=== PATIENT | female | born 1945 | race Caucasian/White ===

== ENCOUNTER 2018-09-05 15:00 | Inpatient (IN) ==
[2018-09-05] MEDS ORDERED: ASPIRIN CHEW 324 MG PO STA (15:21)
--- NOTE | 2018-09-05 15:59 | XRay Report ---
SINGLE VIEW CHEST CLINICAL HISTORY: Dyspnea. FINDINGS: An AP, portable, upright chest radiograph is compared to study dated 01/26/2016 and correlat ed with chest CT dated 08/27/2013. The examination is degraded by portable technique. A left subclavi an central venous infusion port is new from 2015. The patient is status post midline sternotomy and c ardiac valve surgery. The heart is enlarged. Mild pulmonary vascular congestion is noted. Chronic int erstitial thickening and mild nodularity is similar to previous. There are small pleural effusions wi th bibasilar consolidation. No pneumothorax is seen. The skeletal structures are osteopenic. The bony thorax is grossly intact. IMPRESSION: 1. Cardiomegaly with mild pulmonary vascular congestion. 2. There are small bilateral pleural effusions with bibasilar consolidation. This likely represents a telectasis. Clinical correlation will be required. Electronically signed by: Shaheed Toussaint M.D. 09/05/2018 3:58 PM
[2018-09-05 16:19] LABS: Hemoglobin 6.3 g/dL (12.0-16.0); INR 1.1 (0.9-1.1); Mean Corpuscular Hgb Conc 33.2 g/dL (32-36); Mean Corpuscular Volume 95.5 fL (80-100); Mean Platelet Volume 9.6 fL (7.4-10.4); Partial Thromboplastin Ratio 1.5; Platelet Count 184 K/uL (130-400); Prothrombin Time 10.8 Seconds (9.0-12.0); RDW Standard Deviation 51.4 fL (36.4-46.3); Red Blood Count 1.99 M/uL (4.2-5.4); White Blood Count 9.06 K/uL (4.8-10.8)
[2018-09-05 16:25] LABS: Oxygen Saturation VBG 65.9 %; pH VBG 7.49 (7.36-7.41)
[2018-09-05 16:28] LABS: Albumin Level 2.3 gm/dl (3.4-5.0); BUN Creatinine Ratio 29.8 (10-20); Calcium 6.9 mg/dl (8.5-10.1); Creatinine Clr Calc Pharmacy 68.9 ml/min; Est GFR (African American) 101.2; Est GFR (Non-African American) 87.3; Potassium 3.7 mmol/L (3.5-5.1)
[2018-09-05 16:33] LABS: Albumin Globulin Ratio 0.8 (0.9-2); Bilirubin,Total 0.3 mg/dl (0.2-1); Globulin 2.8 gm/dl (2.5-4.0); Total Protein 5.1 gm/dl (6.4-8.2); Troponin I 0.016 ng/ml (0-0.045)
[2018-09-05 16:35] LABS: iSTAT Hemoglobin 6.5 g/dl (12.0-16.0); iSTAT Ionized Calcium 1.09 mmol/l (1.12-1.32)
[2018-09-05 16:56] LABS: Basophils # (auto) 0.03 K/uL (0-0.2); Basophils % (auto) 0.3 %; Eosinophils # (auto) 0.01 K/uL (0-0.5); Eosinophils % (auto) 0.1 %; Immature Granulocytes # (auto) 0.03 K/uL (0.00-0.02); Immature Granulocytes % (auto) 0.3 %; Lymphocytes # (auto) 1.25 K/uL (1.2-3.4); Lymphocytes % (auto) 13.8 %; Monocytes # (auto) 1.44 K/uL (0.11-0.59); Monocytes % (auto) 15.9 %; Neutrophils % (auto) 69.6 %; RBC Morphology Unremarkable
[2018-09-05 17:22] LABS: Influenza A virus by PCR Neg for Influ A (Neg); Influenza B virus by PCR Neg for Influ B (Neg)
--- NOTE | 2018-09-05 18:34 | History & Physical Report ---
Date of Service September 05, 2018 Assessment & Plan (1) Symptomatic anemia: Pt reports has had dyspnea on exertion and orthopnea since starting chemo couple of months ago. Increased SOB past 4 days. Today lightheaded with walking. Denies syncope. In ER pt afebrile, P: 112, R: 35 down to 22, BP: 133/114 down to 123/62, 88% on RA up to 100% on 2L NC WBC: 9, H/H: 6.3/19, MCV: 95, MCH:31, MCHC: 33, Plt: 184 -Baseline Hgb: 12. Outpatient Hgb: 12.7 on 08/29/18 -Has been on lovenox outpatient for a-fib -pending iron studies, folate, B12, retic count -fecal occult stool -transfuse 2 units irradiated PRBC with lasix 40mg IV in between units -repeat H&H 4 hours after PRBC transfusion -hold aspirin, lovenox -GI consult appreciate recommendations (2) Ovarian cancer: Dx ovarian CA in 05/2018. Following with Dr Conroy at [facility] in [place]. Had chemo x 3, last was 07/27/18. Last Nuelasta 07/28/18. Scheduled for exploratory lap, PEREZ/SBO and debulking on 09/12/17 at [facility] with Dr Balderas. -continue tylenol, percocet prn pain (3) Acute respiratory failure: Pt reports has had dyspnea on exertion and orthopnea since starting chemo. Past 4 days with increased SOB. Denies cough/fever In ER pt afebrile, P: 112, R: 35 down to 22, BP: 133/114 down to 123/62, 88% on RA up to 100% on 2L NC CXR:Cardiomegaly with mild pulmonary vascular congestion. There are small bilateral pleural effusions with bibasilar consolidation. This likely represents atelectasis. -Doing well on 2L oxygen NC with sats 100% -Pt has been on lovenox 60mg BID for a-fib for one week, PE less likely -has current ascites, anemia -supplemental oxygen -monitor (4) Ascites: Hx ascites with ovarian CA. Last paracentesis 06/2018. Reports increased abdominal distension since last paracentesis which has significantly increased over the past few days. Chronic lower abdominal pain, but denies any increased abdominal pain. 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 Follows with Dr Cox for routine care Pt was seen with Dr Linda. See addendum History of Present Illness Chief Complaint: SOB, increased abdominal distension Primary Care Provider: Guillermo Cox MD Pt is 73 y/o F with PMH HTN, dyslipidemia, chronic LBBB, h/o endocarditis in 2003 with mitral valve repair with post op a-fib s/p ablation and post-op CVA, CAD s/p angioplasty RPDA and JOHNSON to LAD in 2015, ovarian CA diagnosed 05/2018, a -fib currently on lovenox presented to ER with c/o increased SOB and increased abdominal distension. Pt with hx abdominal pain and ascites, found to have ovarian/peritoneal CA in . Following with Dr Conroy at [facility] in [place]. Had Carbo AVC/Taxol 175 chemo x 3, last was 07/27/18. Last Nuelasta 07/28/18. Hx paracentesis, last one was in 06/2018 at [facility] Pt reports has had dyspnea on exertion and orthopnea since starting chemo. Past 4 days with increased SOB and today with SOB at rest. States this morning had left chest pain lasted a couple of seconds and resolved, occurred at rest. No further CP. Today felt lightheaded with walking. Denies syncope or falls. Pt states has had slow accumulation of abdominal distension since last paracentesis which has significantly increased over the past few days. Has had lower abdominal pain, but denies any increased abdominal pain. Had some nausea after taking tylenol on empty stomach this morning. Denies vomiting. Reports since chemo has had episodes of bright red blood noted on toilet paper with BMs that occurs a couple of times a week. States been happening daily over past 3 days. Reports BMs are soft. Denies diarrhea or constipation. Pt followed with Dr Balderas at [facility] and is scheduled for exploratory lap, PEREZ/SBO and debulking on 09/12/17 at [facility] On cardiology visit on 08/29/18 pt found to be in a-fib. Was started on lovenox secondary to upcoming surgical procedure. Pt reports has been taking 60mg Lovenox twice daily, denies missed doses. Denies fever/chills, diaphoresis, SINCLAIR, syncope, vision changes, neck pain, palpitations, cough, sore throat, choking, otalgia, rhinorrhea, paresthesias, extremity edema, rashes, urinary symptoms, hematuria, vaginal bleeding, epistaxis. Baseline Hgb: 12. Labs on 08/29/18 with Hgb: 12.7 05/19/18 EGD: esophagus unremarkable, minor inflammation of the antrum 05/19/18 Colonoscopy: direct visualization to approx 30 cm where there is marked angulation and evidence for diverticular disease. Scopes By Dr Chong - [facility] 09/01/[address] CHEST & CT ABD/PELVIS: 1. Moderate volume simple ascites with moderate simple pleural effusions. A few prominent central mesenteric lymph nodes are present. Diffusely heterogenouos and bulky uterus, which is concerning for neoplastic involvement. Interval decrease in burden of peritoneal disease compared to the study form 06/2018. No distinct peritoneal implant or evidence of liver scalloping. 2. Pulmonary nodules 3. Stable midbody pancreatic cystic lesion. 08/30/18 Echo: EF: 55-59%, s/p mitral valve repair. Moderate focal calcification of the anterior mitral valve leaflet. Mild mitral stenosis is present. Significant mitral regurgitation is absent. The left atrium is severely enlarged. Moderate tricuspid regurgitation is present. Allergies Allergy/AdvReac Type Severity Reaction Status Date / Time ELISE Inhibitors AdvReac Cough Unverified 09/05/18 17:11 Home Medications Home Medications Medication Instructions Recorded Confirmed Type acetaminophen [Tylenol] 325 mg PO Q6H PRN 09/05/18 09/05/18 History ascorbic acid (vitamin C) 1 g PO DAILY 09/05/18 09/05/18 History aspirin [Aspirin Low Dose] 81 mg PO DAILY 09/05/18 09/05/18 History carvedilol 6.25 mg PO BID 09/05/18 09/05/18 History dexamethasone 4 mg PO UD 09/05/18 09/05/18 History enoxaparin 60 mg SUBCUT UD 09/05/18 09/05/18 History isosorbide mononitrate 60 mg PO QAM 09/05/18 09/05/18 History losartan 25 mg PO DAILY 09/05/18 09/05/18 History melatonin 3 mg PO HS 09/05/18 09/05/18 History nitroglycerin 0.4 mg SUBLINGUAL UD PRN 09/05/18 09/05/18 History ondansetron HCl 8 mg PO UD PRN 09/05/18 09/05/18 History oxycodone-acetaminophen 1 tab PO Q4H PRN 09/05/18 09/05/18 History polyethylene glycol 3350 [Miralax] 17 g PO DAILY 09/05/18 09/05/18 History prochlorperazine maleate 10 mg PO Q6 PRN 09/05/18 09/05/18 History Past Med/Surg History Medical History LBBB (left bundle branch block) (Chronic) CAD (coronary artery disease) (Chronic) HTN (hypertension) (Chronic) HLD (hyperlipidemia) (Chronic) Ovarian cancer (Chronic) Atrial fibrillation (Chronic) Supraventricular tachycardia (Resolved) Endocarditis (Resolved) Stroke (Chronic) Rhabdomyolysis (Resolved) Pulmonary nodules (Chronic) "noted on CT chest 08/27/13" Pancreatic mass (Chronic) "noted on CT of chest 08/27/13" Surgical History History of cardiac cath (Resolved) 07/15/2016 - patent LAD stent, 40% mild LD distal to LAD stent, 30% mid RCA, distal RPDA patent History of appendectomy (Resolved) Status post exploratory laparotomy (Chronic) Status post mitral valve repair (Chronic) "Dr. Mcdaniel [facility] 2003" Status post ablation of accessory bypass tract (Chronic) "Dr. Worley [facility] 2004" Family History Other Breast cancer CAD (coronary artery disease) Lung cancer Social History Current Living Situation: Spouse Other Information That Helps Us Care for You: No Feels Safe at Home: Yes Smoking Status: Never smoker Second Hand Exposure: No Hx Alcohol Use: No Hx Substance Use: No Beliefs That Will Affect Care: None Preferred Language: Afghan Communication Ability: Effective Supervisor [employer] Required: No Review of Systems All systems reviewed & are unremarkable except as noted in HPI & below Physical Exam 2 Vital Signs (Past 24 Hours): Last Vital Signs Temp 36.6 C 09/05/18 15:14 Pulse 105 H 09/05/18 17:00 Resp 23 09/05/18 17:00 BP 136/71 09/05/18 17:00 Pulse Ox 100 09/05/18 17:00 Physical Exam: General: no acute distress, chronically ill appearing Head: normocephalic, atraumatic Eyes: PERRL, EOM's intact, conjunctiva non-injected, anicteric ENT: normal inspection external ears, nose, mucous membranes moist Neck: supple, trachea midline Lungs: R: 24, no accessory muscle use clear, 100% on 2L NC, diminished bases CV: irregularly irregular, no pretibial edema Abd: normal BS, soft, +distended, no tenderness to palpation, +ecchymosis to abdomen Ext: no cyanosis, no calf tenderness, no erythema Neuro: A&O x 3, no focal deficits noted, normal affect Skin: warm, dry Results & Data Laboratory Results Short CBC 09/05/18 09/05/18 Range/Units 15:59 18:12 WBC 9.06 (4.8-10.8) K/uL Hgb 6.3 L* 6.4 L* (12.0-16.0) g/dL Hct 19.0 L* 19.2 L* (37-47) % Plt Count 184 (130-400) K/uL BMP 09/05/18 15:59 Sodium 134 L Potassium 3.7 Chloride 106 Carbon Dioxide 22 BUN 19 H Creatinine 0.64 Glucose 97 Calcium 6.9 L Cardiac Enzymes 09/05/18 Range/Units 15:59 Troponin I 0.016 (0-0.045) ng/ml Liver Function 09/05/18 Range/Units 15:59 Total Bilirubin 0.3 (0.2-1) mg/dl AST 21 (15-37) U/L ALT 25 (12-78) U/L Alkaline Phosphatase 63 (45-117) U/L Albumin 2.3 L (3.4-5.0) gm/dl Diagnostic Findings CXR: IMPRESSION: 1. Cardiomegaly with mild pulmonary vascular congestion. 2. There are small bilateral pleural effusions with bibasilar consolidation. This likely represents atelectasis. Clinical correlation will be required. ECG Rate (beats per minute): 101 Rhythm: atrial fibrillation Findings: + LBBB Supervising Physician Co-Signing Physician Notes Attending addendum; The patient was seen and examined in emergency room Pt is 73 y/o F with PMH HTN, dyslipidemia, chronic LBBB, h/o endocarditis in 2004 with mitral valve repair with post op a-fib s/p ablation and post-op CVA, CAD s/p angioplasty RPDA and JOHNSON to LAD in 2015, ovarian CA diagnosed 05/2018, a -fib currently on lovenox presented to ER with c/o increased SOB and increased abdominal distension. She complains today of shortness of breath which is worse for the last few days Associated swelling of the abdomen She has been complaining of bright red blood per rectum which is intermittent Denies any chest pain, palpitation, nausea and/or vomiting but does have abdominal pain with distention On examination Looks pale Moderate shortness of breath at rest Vitals as noted Chest-clear to auscultate bilaterally. Heart-S1-S2 regular Abdomen-distended, soft, tender mostly upper quadrants, clinically moderate amount of ascitic fluid, bowel sounds present Extremities-no edema [employer]-alert, awake and oriented x3. No focal neuro deficit Admission labs and imaging studies reviewed Has a very low hemoglobin of 6.9 with bright red blood per rectum Has significant ascites may be contributing shortness of breath Ovarian cancer with ongoing chemotherapy. Has atrial fibrillation on Lovenox Acute with assessment and plan as outlined above by Victoria Linda
[2018-09-05 18:40] LABS: Hematocrit (blood only) 19.2 % (37-47); Hemoglobin 6.4 g/dL (12.0-16.0); Reticulocyte % 3.2 % (0.5-2.0); Reticulocytes # 0.06 10^6/uL (0.02-0.10)
[2018-09-05 18:54] LABS: Ferritin 314.3 ng/ml (8-388)
[2018-09-05 19:01] LABS: Vitamin B12 > 2000 pg/ml (211-911)
[2018-09-05 19:02] LABS: Folate (Folic Acid) 18.95 ng/ml (>5.38)
[2018-09-05] MEDS ORDERED: ACETAMINOPHEN 325 MG TAB PO PRN (19:15)
[2018-09-05] MEDS ORDERED: FUROSEMIDE 40 MG/4 ML VIAL IV ONE (19:15)
[2018-09-05] MEDS ORDERED: NITROGLYCERIN SL 0.4 MG/TAB TAB SL PRN (19:15)
[2018-09-05] MEDS: ONDANSETRON INJ 2 MG/ML 2 ML VIAL IV PRN (19:31)
[2018-09-05] MEDS ORDERED: METOPROLOL TARTRATE 1 MG/ML VIAL IV PRN (19:36)
[2018-09-05] MEDS: OXYCODONE/ACETAMINOPHEN 5mg/325mg TAB PO PRN (20:32)
[2018-09-05] MEDS: CARVEDILOL 6.25 MG TAB PO SCH (20:34)
--- NOTE | 2018-09-05 20:39 | Ultrasound Report ---
US abdomen limited HISTORY: 73 years-old Female ascites recurrent ascites with abdominal distention COMPARISON: None available TECHNIQUE: Multiple real-time sonographic images of the abdomen were obtained assessing grayscale colleen earance FINDINGS/IMPRESSION: Mild to moderate volume of ascites containing floating debris noted throughout all quadrants of the a bdomen. The above report was generated using voice recognition software. It may contain grammatical, syntax o r spelling errors. Electronically signed by: Eligio Raines M.D. 09/05/2018 8:38 PM
[2018-09-05] MEDS ORDERED: NON-FORMULARY MEDICATION (Melatonin [Melatonin] 3 MG) PO SCH (21:00)
[2018-09-05] MEDS ORDERED: FUROSEMIDE 40 MG in SYRINGE 0 ML IV SCH (21:00)
--- NOTE | 2018-09-05 21:27 | Emergency Department Note ---
Entered by Romy Ashley acting as a scribe for History of Present Illness General Chief complaint: Shortness of Breath/Dyspnea Stated complaint: SOB ,AB PAIN Source: patient Mode of arrival: EMS Limitations: no limitations History of Present Illness Provider complaint: shortness of breath Onset (ago): day(s) 4 Location: chest Pain Consistency: + other (worsening) Maximum Pain Intensity: 10 Current Pain Intensity: 4 Quality: + other (shortness of breath) Exacerbated By: + other (lying flat) The patient is a 73 year old female who presents to the Emergency Room with complaints of a worsening shortness of breath that began 4 days ago. The patient reports that she does experience chronic shortness of breath but it has been worse recently and when lying flat. She also states that she has chronic chest pain as well as abdominal pain that both come and go. She denies wearing nasal cannula oxygen at baseline. The patient notes that she has a history of ovarian cancer and her last chemotherapy session was the 28 of July. She reports that they have temporarily discontinued her sessions secondary to an upcoming surgery. Per EMS, the patient's O2 Sat was 88 en route. The patient denies a history of heart failure but notes that she does have a history of a- fib. She denies any sick contacts or history of blood clots, but states that she does currently take blood thinners. Home Medications Home Medications Medication Instructions Recorded Confirmed Type acetaminophen [Tylenol] 325 mg PO Q6H PRN 09/05/18 09/05/18 History ascorbic acid (vitamin C) 1 g PO DAILY 09/05/18 09/05/18 History aspirin [Aspirin Low Dose] 81 mg PO DAILY 09/05/18 09/05/18 History carvedilol 6.25 mg PO BID 09/05/18 09/05/18 History dexamethasone 4 mg PO UD 09/05/18 09/05/18 History enoxaparin 60 mg SUBCUT UD 09/05/18 09/05/18 History isosorbide mononitrate 60 mg PO QAM 09/05/18 09/05/18 History losartan 25 mg PO DAILY 09/05/18 09/05/18 History melatonin 3 mg PO HS 09/05/18 09/05/18 History nitroglycerin 0.4 mg SUBLINGUAL UD PRN 09/05/18 09/05/18 History ondansetron HCl 8 mg PO UD PRN 09/05/18 09/05/18 History oxycodone-acetaminophen 1 tab PO Q4H PRN 09/05/18 09/05/18 History polyethylene glycol 3350 [Miralax] 17 g PO DAILY 09/05/18 09/05/18 History prochlorperazine maleate 10 mg PO Q6 PRN 09/05/18 09/05/18 History Allergies Allergy/AdvReac Type Severity Reaction Status Date / Time ELISE Inhibitors AdvReac Cough Unverified 09/05/18 17:11 Past Med/Surg History Medical History LBBB (left bundle branch block) (Chronic) CAD (coronary artery disease) (Chronic) HTN (hypertension) (Chronic) HLD (hyperlipidemia) (Chronic) Ovarian cancer (Chronic) Atrial fibrillation (Chronic) Supraventricular tachycardia (Resolved) Endocarditis (Resolved) Stroke (Chronic) Rhabdomyolysis (Resolved) Pulmonary nodules (Chronic) "noted on CT chest 08/27/13" Pancreatic mass (Chronic) "noted on CT of chest 08/27/13" Surgical History History of cardiac cath (Resolved) 07/15/2016 - patent LAD stent, 40% mild LD distal to LAD stent, 30% mid RCA, distal RPDA patent History of appendectomy (Resolved) Status post exploratory laparotomy (Chronic) Status post mitral valve repair (Chronic) "[place]. Mcdan[place] [facility] [place] Status post ablation of accessory bypass tract (Chronic) "[place]. 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 and A total of 10 systems reviewed and were otherwise negative Physical Exam Vital Signs Vital Signs - 24 hr 09/05/18 15:07 09/05/18 15:14 09/05/18 15:20 Temperature 36.6 C Temperature Source Oral Sepsis Recent Fever Within 48 Hours No Sepsis New/Unexplained Change in Mental Status No Sepsis Action Taken by Nursing No Action Required Pulse Rate 112 H 99 H Pulse Rate [Right Finger] Pulse Rhythm Irregular Pulse Rhythm [Right Finger] Pulse Strength Normal Pulse Strength [Right Finger] Respiratory Rate 35 H 27 H Respiratory Effort / Characteristics Labored Respiratory Depth Normal Respiratory Pattern Regular Blood Pressure 133/114 H 133/114 H Blood Pressure [Right Arm] Blood Pressure Mean 120 120 Blood Pressure Mean [Right Arm] Blood Pressure Position Lying Blood Pressure Position [Right Arm] Pulse Oximetry 99 88 L 94 Oxygen Delivery Method Room Air Nasal Cannula Oxygen Flow Rate 4 Fraction of Inspired Oxygen 09/05/18 15:21 09/05/18 15:59 09/05/18 16:00 Temperature Temperature Source Sepsis Recent Fever Within 48 Hours Sepsis New/Unexplained Change in Mental Status Sepsis Action Taken by Nursing Pulse Rate 119 H 111 H 105 H Pulse Rate [Right Finger] Pulse Rhythm Regular Pulse Rhythm [Right Finger] Pulse Strength Pulse Strength [Right Finger] Respiratory Rate 28 H 24 16 Respiratory Effort / Characteristics Respiratory Depth Respiratory Pattern Blood Pressure 123/62 Blood Pressure [Right Arm] Blood Pressure Mean 82 Blood Pressure Mean [Right Arm] Blood Pressure Position Blood Pressure Position [Right Arm] Pulse Oximetry 100 100 Oxygen Delivery Method Nasal Cannula Oxygen Flow Rate 96 Fraction of Inspired Oxygen 09/05/18 16:08 09/05/18 17:00 09/05/18 17:31 Temperature Temperature Source Sepsis Recent Fever Within 48 Hours Sepsis New/Unexplained Change in Mental Status Sepsis Action Taken by Nursing Pulse Rate 105 H 106 H Pulse Rate [Right Finger] Pulse Rhythm Pulse Rhythm [Right Finger] Pulse Strength Pulse Strength [Right Finger] Respiratory Rate 23 21 Respiratory Effort / Characteristics Respiratory Depth Respiratory Pattern Blood Pressure 136/71 136/71 Blood Pressure [Right Arm] Blood Pressure Mean 92 92 Blood Pressure Mean [Right Arm] Blood Pressure Position Blood Pressure Position [Right Arm] Pulse Oximetry 100 99 Oxygen Delivery Method Nasal Cannula Nasal Cannula Oxygen Flow Rate 2 Fraction of Inspired Oxygen 2 09/05/18 18:00 09/05/18 19:05 Temperature 36.9 C Temperature Source Oral Sepsis Recent Fever Within 48 Hours Sepsis New/Unexplained Change in Mental Status Sepsis Action Taken by Nursing Pulse Rate 111 H Pulse Rate [Right Finger] 101 H Pulse Rhythm Pulse Rhythm [Right Finger] Irregular Pulse Strength Pulse Strength [Right Finger] Normal Respiratory Rate 26 H 22 Respiratory Effort / Characteristics Spontaneous SOB on Exertion Respiratory Depth Shallow Respiratory Pattern Tachypnea Blood Pressure 133/70 Blood Pressure [Right Arm] 101/68 Blood Pressure Mean 91 Blood Pressure Mean [Right Arm] 79 Blood Pressure Position Blood Pressure Position [Right Arm] Lying Pulse Oximetry 100 99 Oxygen Delivery Method Nasal Cannula Oxygen Flow Rate 2 Fraction of Inspired Oxygen GENERAL: Sitting up in bed, alert, chronically ill appearing, dyspneic with conversation, on nasal cannula oxygen. EYE EXAM: normal conjunctiva. OROPHARYNX: no exudate, no erythema, lips, buccal mucosa, and tongue normal and mucous membranes are moist NECK: supple, no nuchal rigidity, no adenopathy, non-tender LUNGS: Breath sounds diminished at bilateral bases. Normal chest wall mechanics HEART: no murmurs, S1 normal and S2 normal. Tachycardic and irregular. ABDOMEN: abdomen soft, non-tender, normo-active bowel, +fluid wave BACK: Back is symmetrical on inspection and there is no deformity, no midline tenderness, no CVA tenderness. RECTAL: negative heme, positive for external hemorrhage. SKIN: no rashes and no bruising UPPER EXTREMITIES: upper extremities are grossly normal. LOWER EXTREMITIES: Mild pitting edema. Calves are equal bilaterally. NEURO EXAM: Normal sensorium, cranial nerves II-XII grossly intact, normal speech, no gross weakness of arms, no gross weakness of legs. Course ED COURSE: Vital signs were reviewed and are within normal limits. The patients medical record was reviewed The above diagnostic studies were performed and reviewed. ED treatments and interventions as stated above. 1505: The patient was evaluated in room B12B. A complete history and physical examination was performed. 1640: Rectal exam performed. Patient consented for blood. 1646: Upon reevaluation, the patient appeared to have improvement of her symptoms. I discussed my findings with the patient and she understands and agrees with the treatment plan. Based on the patients age, coexisting illnesses, exam and lab findings the decision to treat as an inpatient was made. The patient remained stable while under my care. The patient will be evaluated for further management. Administered Medications Carvedilol (Coreg) 6.25 mg PO BID ZEFERINO Stop: 10/05/18 20:59 Last Admin: 09/05/18 20:34 Dose: 6.25 mg Furosemide 40 mg/ Syringe 4 mls @ 4 mls/min IV 2100 ZEFERINO Stop: 09/05/18 23:59 Last Admin: 09/05/18 20:34 Dose: 4 mls/min Ondansetron HCl (Zofran) 4 mg IV Q6H PRN PRN Reason: Nausea And Vomiting Stop: 10/05/18 19:14 Last Admin: 09/05/18 19:31 Dose: 4 mg Oxycodone/Acetaminophen (Percocet 5mg/325mg) 1 tab PO Q4H PRN PRN Reason: Pain Stop: 09/19/18 19:14 Last Admin: 09/05/18 20:32 Dose: 1 tab Discontinued Medications Aspirin (Aspirin) 324 mg PO NOW STA Stop: 09/05/18 15:22 Last Admin: 09/05/18 15:25 Dose: Not Given Medical Decision Making Differential Diagnosis Differential diagnoses includes but is not limited to pneumonia, bronchitis, COPD/Asthma exacerbation, pneumothorax, pulmonary embolism, congestive heart failure, acute coronary syndrome Medical Records Attestation: I reviewed the patient's medical records. Home Medications Current Medication List: was personally reviewed by me Laboratory Data Attestation: I reviewed the patient's lab results. Result diagrams: 09/05/18 18:12 09/05/18 15:59 Lab Results 09/05/18 09/05/18 09/05/18 Range/Units 15:59 15:59 15:59 WBC 9.06 (4.8-10.8) K/uL RBC 1.99 L (4.2-5.4) M/uL Hgb 6.3 L* (12.0-16.0) g/dL POC Hgb (12.0-16.0) g/dl Hct 19.0 L* (37-47) % POC Hct (37-47) % MCV 95.5 (80-100) fL MCH 31.7 (25-34) pg MCHC 33.2 (32-36) g/dL RDW Std Deviation 51.4 H (36.4-46.3) fL RDW Coeff of Gabriela 15.0 H (11.5-14.5) % Plt Count 184 (130-400) K/uL MPV 9.6 (7.4-10.4) fL Immature Gran % (Auto) 0.3 % Neut % (Auto) 69.6 % Lymph % (Auto) 13.8 % Forest % (Auto) 15.9 % Eos % (Auto) 0.1 % Baso % (Auto) 0.3 % Reticulocyte % (Auto) (0.5-2.0) % Immature Gran # (Auto) 0.03 H (0.00-0.02) K/uL Neut # (Auto) 6.30 (1.4-6.5) K/uL Lymph # (Auto) 1.25 (1.2-3.4) K/uL Forest # (Auto) 1.44 H (0.11-0.59) K/uL Eos # (Auto) 0.01 (0-0.5) K/uL Baso # (Auto) 0.03 (0-0.2) K/uL Reticulocyte # (0.02-0.10) 10^6/uL RBC Morphology Unremarkable PT 10.8 (9.0-12.0) Seconds INR 1.1 (0.9-1.1) APTT 40.0 H (21.0-31.0) Seconds PTT Ratio 1.5 VBG pH (7.36-7.41) VBG pCO2 (38-50) mmHg VBG pO2 mmHg VBG HCO3 mmol/L VBG O2 Saturation % VBG Base Excess mEq/L Barometric Pressure mm/Hg POC Sodium (135-144) mEq/L Sodium 134 L (136-145) mmol/L POC Potassium (3.3-5.0) mEq/L Potassium 3.7 (3.5-5.1) mmol/L POC Chloride (101-112) mEq/L Chloride 106 (98-107) mmol/L Carbon Dioxide 22 (21-32) mmol/L POC Total CO2 (24-31) mEq/l Anion Gap 6.0 (3-11) POC Anion Gap (16-25) mmol/L POC BUN (7-18) mg/dl BUN 19 H (7-18) mg/dl Creatinine 0.64 (0.6-1.2) mg/dl POC Creatinine (0.6-1.3) mg/dl Est Cr Clr Drug Dosing 68.9 ml/min Est GFR ( Amer) 101.2 Est GFR (Non-Af Amer) 87.3 BUN/Creatinine Ratio 29.8 H (10-20) Glucose 97 (70-99) mg/dl POC Glucose (other) (70-99) mg/dl Calcium 6.9 L (8.5-10.1) mg/dl POC Ioniz Calcium Amparo (1.12-1.32) mmol/l Iron (35-150) mcg/dl TIBC (250-450) mcg/dl Ferritin (8-388) ng/ml Total Bilirubin 0.3 (0.2-1) mg/dl AST 21 (15-37) U/L ALT 25 (12-78) U/L Alkaline Phosphatase 63 (45-117) U/L Troponin I 0.016 (0-0.045) ng/ml Total Protein 5.1 L (6.4-8.2) gm/dl Albumin 2.3 L (3.4-5.0) gm/dl Globulin 2.8 (2.5-4.0) gm/dl Albumin/Globulin Ratio 0.8 L (0.9-2) Lipase (73-393) U/L Vitamin B12 (211-911) pg/ml Folate (>5.38) ng/ml Influenza Type A (PCR) (Neg) Influenza Type B (PCR) (Neg) Blood Type Blood Type Recheck Antibody Screen Crossmatch 09/05/18 09/05/18 09/05/18 Range/Units 15:59 16:07 16:20 WBC (4.8-10.8) K/uL RBC (4.2-5.4) M/uL Hgb (12.0-16.0) g/dL POC Hgb 6.5 L* (12.0-16.0) g/dl Hct (37-47) % POC Hct 19 L* (37-47) % MCV (80-100) fL MCH (25-34) pg MCHC (32-36) g/dL RDW Std Deviation (36.4-46.3) fL RDW Coeff of Gabriela (11.5-14.5) % Plt Count (130-400) K/uL MPV (7.4-10.4) fL Immature Gran % (Auto) % Neut % (Auto) % Lymph % (Auto) % Forest % (Auto) % Eos % (Auto) % Baso % (Auto) % Reticulocyte % (Auto) (0.5-2.0) % Immature Gran # (Auto) (0.00-0.02) K/uL Neut # (Auto) (1.4-6.5) K/uL Lymph # (Auto) (1.2-3.4) K/uL Forest # (Auto) (0.11-0.59) K/uL Eos # (Auto) (0-0.5) K/uL Baso # (Auto) (0-0.2) K/uL Reticulocyte # (0.02-0.10) 10^6/uL RBC Morphology PT (9.0-12.0) Seconds INR (0.9-1.1) APTT (21.0-31.0) Seconds PTT Ratio VBG pH 7.49 H (7.36-7.41) VBG pCO2 27 L (38-50) mmHg VBG pO2 32 mmHg VBG HCO3 20 mmol/L VBG O2 Saturation 65.9 % VBG Base Excess -3.0 mEq/L Barometric Pressure 730.5 mm/Hg POC Sodium 131 L (135-144) mEq/L Sodium (136-145) mmol/L POC Potassium 4.2 (3.3-5.0) mEq/L Potassium (3.5-5.1) mmol/L POC Chloride 98 L (101-112) mEq/L Chloride (98-107) mmol/L Carbon Dioxide (21-32) mmol/L POC Total CO2 21 L (24-31) mEq/l Anion Gap (3-11) POC Anion Gap 18.0 (16-25) mmol/L POC BUN 19 H (7-18) mg/dl BUN (7-18) mg/dl Creatinine (0.6-1.2) mg/dl POC Creatinine 0.8 (0.6-1.3) mg/dl Est Cr Clr Drug Dosing ml/min Est GFR ( Amer) Est GFR (Non-Af Amer) BUN/Creatinine Ratio (10-20) Glucose (70-99) mg/dl POC Glucose (other) 109 H (70-99) mg/dl Calcium (8.5-10.1) mg/dl POC Ioniz Calcium Amparo 1.09 L (1.12-1.32) mmol/l Iron (35-150) mcg/dl TIBC (250-450) mcg/dl Ferritin (8-388) ng/ml Total Bilirubin (0.2-1) mg/dl AST (15-37) U/L ALT (12-78) U/L Alkaline Phosphatase (45-117) U/L Troponin I (0-0.045) ng/ml Total Protein (6.4-8.2) gm/dl Albumin (3.4-5.0) gm/dl Globulin (2.5-4.0) gm/dl Albumin/Globulin Ratio (0.9-2) Lipase (73-393) U/L Vitamin B12 (211-911) pg/ml Folate (>5.38) ng/ml Influenza Type A (PCR) Neg for Influ A (Neg) Influenza Type B (PCR) Neg for Influ B (Neg) Blood Type Blood Type Recheck Antibody Screen Crossmatch 09/05/18 09/05/18 09/05/18 Range/Units 16:52 18:12 18:12 WBC (4.8-10.8) K/uL RBC (4.2-5.4) M/uL Hgb 6.4 L* (12.0-16.0) g/dL POC Hgb (12.0-16.0) g/dl Hct 19.2 L* (37-47) % POC Hct (37-47) % MCV (80-100) fL MCH (25-34) pg MCHC (32-36) g/dL RDW Std Deviation (36.4-46.3) fL RDW Coeff of Gabriela (11.5-14.5) % Plt Count (130-400) K/uL MPV (7.4-10.4) fL Immature Gran % (Auto) % Neut % (Auto) % Lymph % (Auto) % Forest % (Auto) % Eos % (Auto) % Baso % (Auto) % Reticulocyte % (Auto) 3.2 H (0.5-2.0) % Immature Gran # (Auto) (0.00-0.02) K/uL Neut # (Auto) (1.4-6.5) K/uL Lymph # (Auto) (1.2-3.4) K/uL Forest # (Auto) (0.11-0.59) K/uL Eos # (Auto) (0-0.5) K/uL Baso # (Auto) (0-0.2) K/uL Reticulocyte # 0.06 (0.02-0.10) 10^6/uL RBC Morphology PT (9.0-12.0) Seconds INR (0.9-1.1) APTT (21.0-31.0) Seconds PTT Ratio VBG pH (7.36-7.41) VBG pCO2 (38-50) mmHg VBG pO2 mmHg VBG HCO3 mmol/L VBG O2 Saturation % VBG Base Excess mEq/L Barometric Pressure mm/Hg POC Sodium (135-144) mEq/L Sodium (136-145) mmol/L POC Potassium (3.3-5.0) mEq/L Potassium (3.5-5.1) mmol/L POC Chloride (101-112) mEq/L Chloride (98-107) mmol/L Carbon Dioxide (21-32) mmol/L POC Total CO2 (24-31) mEq/l Anion Gap (3-11) POC Anion Gap (16-25) mmol/L POC BUN (7-18) mg/dl BUN (7-18) mg/dl Creatinine (0.6-1.2) mg/dl POC Creatinine (0.6-1.3) mg/dl Est Cr Clr Drug Dosing ml/min Est GFR ( Amer) Est GFR (Non-Af Amer) BUN/Creatinine Ratio (10-20) Glucose (70-99) mg/dl POC Glucose (other) (70-99) mg/dl Calcium (8.5-10.1) mg/dl POC Ioniz Calcium Amparo (1.12-1.32) mmol/l Iron (35-150) mcg/dl TIBC (250-450) mcg/dl Ferritin (8-388) ng/ml Total Bilirubin (0.2-1) mg/dl AST (15-37) U/L ALT (12-78) U/L Alkaline Phosphatase (45-117) U/L Troponin I (0-0.045) ng/ml Total Protein (6.4-8.2) gm/dl Albumin (3.4-5.0) gm/dl Globulin (2.5-4.0) gm/dl Albumin/Globulin Ratio (0.9-2) Lipase (73-393) U/L Vitamin B12 (211-911) pg/ml Folate (>5.38) ng/ml Influenza Type A (PCR) (Neg) Influenza Type B (PCR) (Neg) Blood Type A Negative Blood Type Recheck A Negative Antibody Screen NEGATIVE Crossmatch See Detail 09/05/18 09/05/18 09/05/18 Range/Units 18:12 18:12 19:30 WBC (4.8-10.8) K/uL RBC (4.2-5.4) M/uL Hgb (12.0-16.0) g/dL POC Hgb (12.0-16.0) g/dl Hct (37-47) % POC Hct (37-47) % MCV (80-100) fL MCH (25-34) pg MCHC (32-36) g/dL RDW Std Deviation (36.4-46.3) fL RDW Coeff of Gabriela (11.5-14.5) % Plt Count (130-400) K/uL MPV (7.4-10.4) fL Immature Gran % (Auto) % Neut % (Auto) % Lymph % (Auto) % Forest % (Auto) % Eos % (Auto) % Baso % (Auto) % Reticulocyte % (Auto) (0.5-2.0) % Immature Gran # (Auto) (0.00-0.02) K/uL Neut # (Auto) (1.4-6.5) K/uL Lymph # (Auto) (1.2-3.4) K/uL Forest # (Auto) (0.11-0.59) K/uL Eos # (Auto) (0-0.5) K/uL Baso # (Auto) (0-0.2) K/uL Reticulocyte # (0.02-0.10) 10^6/uL RBC Morphology PT (9.0-12.0) Seconds INR (0.9-1.1) APTT (21.0-31.0) Seconds PTT Ratio VBG pH (7.36-7.41) VBG pCO2 (38-50) mmHg VBG pO2 mmHg VBG HCO3 mmol/L VBG O2 Saturation % VBG Base Excess mEq/L Barometric Pressure mm/Hg POC Sodium (135-144) mEq/L Sodium (136-145) mmol/L POC Potassium (3.3-5.0) mEq/L Potassium (3.5-5.1) mmol/L POC Chloride (101-112) mEq/L Chloride (98-107) mmol/L Carbon Dioxide (21-32) mmol/L POC Total CO2 (24-31) mEq/l Anion Gap (3-11) POC Anion Gap (16-25) mmol/L POC BUN (7-18) mg/dl BUN (7-18) mg/dl Creatinine (0.6-1.2) mg/dl POC Creatinine (0.6-1.3) mg/dl Est Cr Clr Drug Dosing ml/min Est GFR ( Amer) Est GFR (Non-Af Amer) BUN/Creatinine Ratio (10-20) Glucose (70-99) mg/dl POC Glucose (other) (70-99) mg/dl Calcium (8.5-10.1) mg/dl POC Ioniz Calcium Amparo (1.12-1.32) mmol/l Iron 10 L (35-150) mcg/dl TIBC 173 L (250-450) mcg/dl Ferritin 314.3 (8-388) ng/ml Total Bilirubin (0.2-1) mg/dl AST (15-37) U/L ALT (12-78) U/L Alkaline Phosphatase (45-117) U/L Troponin I (0-0.045) ng/ml Total Protein (6.4-8.2) gm/dl Albumin (3.4-5.0) gm/dl Globulin (2.5-4.0) gm/dl Albumin/Globulin Ratio (0.9-2) Lipase 69 L (73-393) U/L Vitamin B12 > 2000 H (211-911) pg/ml Folate 18.95 (>5.38) ng/ml Influenza Type A (PCR) (Neg) Influenza Type B (PCR) (Neg) Blood Type Blood Type Recheck Antibody Screen Crossmatch Imaging Data Radiologist's Impression: Radiology results as stated below per my review and the radiologist's interpretation: SINGLE VIEW CHEST CLINICAL HISTORY: Dyspnea. FINDINGS: An AP, portable, upright chest radiograph is compared to study dated and correlated with chest CT dated 08/27/2013. The examination is degraded by portable technique. A left subclavian central venous infusion port is new from 2016. The patient is status post midline sternotomy and cardiac valve surgery. The heart is enlarged. Mild pulmonary vascular congestion is noted. Chronic interstitial thickening and mild nodularity is similar to previous. There are small pleural effusions with bibasilar consolidation. No pneumothorax is seen. The skeletal structures are osteopenic. The bony thorax is grossly intact. IMPRESSION: 1. Cardiomegaly with mild pulmonary vascular congestion. 2. There are small bilateral pleural effusions with bibasilar consolidation. This likely represents atelectasis. Clinical correlation will be required. Electronically signed by: Shaheed Toussaint M.D. 09/05/2018 3:58 PM ECG Data Attestation: I personally reviewed and interpreted this ECG as follows: Indication: SOB/dyspnea Rate (beats per minute): 101 Rhythm: atrial fibrillation (with RVR) Findings: + ST depression (in lateral and high lateral) and + left axis deviation Comparison ECG Date: from (Jul-2016) Change: the following changes noted (a-fib new) Blood Pressure Blood Pressure Findings: Normal blood pressure Blood Pressure Disposition: did not require urgent referral MDM Narrative Patient is a 73-year-old female who presents the ER for weakness associated with shortness of breath. She found to be tachycardic and slightly hypoxic. She was placed on 3-4 L nasal cannula as pulse ox was 87-88 on room air. Labs were obtained and showed a anemia of 6.4 down from 14. Rectal was heme- negative. INR was unremarkable. VBG with a pH of 7.49. BMP with mild hyponatremia. BUN was slightly elevated. LFTs and troponin were normal. Lipase was normal. Influenza was negative. Patient was typed and crossmatched for 2 units. Patient was given 2 units PRBCs. Patient was updated bedside. She was discussed with the hospitalist and admitted for further workup. Of note she did admit to bright red blood per rectum off and on for several weeks. Impression & Plan Symptomatic anemia, Hypoxic Critical Care Time I have personally spent 35 minutes of critical care time in the direct management of this patient. This includes bedside care, interpretation of diagnostic studies and testing, discussion with consultants, patient, and family members, and other required patient management activities. These 35 minutes is in excess of all separately billable procedures. Critical Care Time: Yes Total Critical Care Time: 35 Discharge Plan Visit Data *Final* Discharge Date/Time: 09/05/18 19:01 Chief Complaint: Shortness of Breath/Dyspnea Stated Complaint: SOB ,AB PAIN ED Provider: Avery Chopra Discharge Problem: Symptomatic anemia, Hypoxic Patient Disposition: Admitted As Inpatient Discharge Instructions Interventions: ED Discharge Assessment Last Done: 09/05/18 19:01 The scribe's documentation has been prepared under my direction and personally reviewed by me in its entirety. I confirm that the note above accurately reflects all work, treatment, procedures, and medical decision making performed by me.
[2018-09-06] MEDS ORDERED: HEPARIN 100 UNIT/ML 5ML FLUSH FLUSH PRN (01:14)
[2018-09-06] MEDS: OXYCODONE/ACETAMINOPHEN 5mg/325mg TAB PO PRN ×2 (03:29→11:05)
[2018-09-06] MEDS: ONDANSETRON INJ 2 MG/ML 2 ML VIAL IV PRN (03:31)
[2018-09-06 04:31] LABS: BUN Creatinine Ratio 26.5 (10-20); Calcium 7.9 mg/dl (8.5-10.1); Creatinine Clr Calc Pharmacy 51.5 ml/min; Est GFR (African American) 77.7
[2018-09-06 04:32] LABS: Hematocrit (blood only) 25.9 % (37-47); Hemoglobin 8.7 g/dL (12.0-16.0); Mean Corpuscular Hgb Conc 33.6 g/dL (32-36); Mean Platelet Volume 9.9 fL (7.4-10.4); Platelet Count 179 K/uL (130-400); RDW Coefficient of Variation 19.6 % (11.5-14.5); RDW Standard Deviation 63.3 fL (36.4-46.3); Red Blood Count 2.91 M/uL (4.2-5.4); White Blood Count 8.93 K/uL (4.8-10.8)
[2018-09-06] MEDS: CARVEDILOL 6.25 MG TAB PO SCH (08:04)
[2018-09-06] MEDS ORDERED: ISOSORBIDE MONO EXTENDED REL 60 MG TABCR PO SCH (09:00)
[2018-09-06 09:36] LABS: Appearance Urine Clear (Clear); Bacteria Urine Automated Negative (Negative); Bilirubin Urine Negative (Negative); Color Urine Orange; Glucose Urine UA Negative (Negative); Ketones Urine Negative (Negative); Leukocyte Esterase Urine Negative (Negative); Nitrite Urine Negative (Negative); Protein Urine Trace (Negative); Specific Gravity Urine 1.021 (1.000-1.030); Urobilinogen Urine Negative (Negative); pH Urine 5.5 (4.5-7.5)
--- NOTE | 2018-09-06 09:45 | Gastrointestinal Consultation ---
Addendum entered and electronically signed by Yara Oscar 09/06/18 11: 24: Addendum (Blank) Addendum September 06, 2018 11:[address] Matthews regarding CT that was ordered - concerning for hemoperitoneum. Unfortunately I am unable to pull up imaging, report not finalized. Will review with radiology as well. GI recommend urgent transfer for IR services at a tertiary care center ([facility]) Original Note: Date of Consultation September 06, 2018 Assessment & Plan (1) Ovarian cancer: 73 year old female w/ peritoneal carcinomatosis, malignant ascites on chemotherapy to go for PEREZ/BSO next week in [place] admitted to [facility] for abd distention and SOB. HGB on arrival 6.3 w/o any s/s of GIB - re-accumulation of ascites, drop in HGB w/o evidence of GIB - CT imaging to rule out internal bleed - No indication for repeat EGD/Colon - If negative can arrange diagnostic/therapeutic paracentesis no more than 3- 4 L off - Cell count to rule out SBP - Monitor GI output - Trend H&H - Transfuse PRN - Given upcoming surgery in [place], low threshold for transfer - GI to sign off. Thank you for allowing us to participate in the care of this patient. Please call with any acute changes, questions or concerns. Please see addendum below with additional recommendation from my supervising physician. Present on Admission?: Yes Supervising Physician Co-Signing Physician Notes I saw and evaluated the patient. She presented with abdominal discomfort distention and a drop in her hemoglobin. CT reveals that she has new onset hemoperitoneum. Unfortunately this is not necessarily something that gastroenterology can evaluate fully. I would therefore suggest that she be referred to a tertiary center for evaluation as she will likely need interventional radiology support and perhaps a surgical support. Physical examination Pleasant appearing female in no obvious distress Mild abdominal tenderness noted on exam Impression: Patient with finding of hemoperitoneum on CT scan. This is perhaps likely related to her history of a malignancy. I would suggest surgical consultation or perhaps referral to a tertiary center for further recommendations and treatment plans. History of Present Illness Reason for Consultation: ascites, anemia Requesting Physician: Byron Attending Physician: Damien Matthews MD History of Present Illness 73 year old female with history of HTN, dyslipidemia, LBBB, endocarditis w/ mitral valve repair in 2004 complicated post operatively by afib and CVA, CAD s/ p JOHNSON to LAD in 2016 and recently diagnosed ovarian CA who presents to [facility] for evaluation of SOB. She notes in May, presented to OSH for abd pain, ascites. CT at that time w/ questionable pelvic mass and omental caking. Underwent EGD/Colon in 05/19 negative. 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 She has since established with w/ Amaliai w/ [facility]/ Onc in [place]. Is to have total hysterectomy and debulking next week in [place]. She presents to [facility] for progressively worsening abd distention and SOB. Notes over the past few weeks her stomach had become more distended, but this worsened over the past 72 hours. She explains abd fullness and pressure but denies any abd pain. Notes she is moving her bowels daily. Has brown stools. Denies any black/bloody stools. Will occasionally see some streaking of BRB on toilet tissue. Denies any of recent. Today, still SOB. No fever, chills, CP, SOB ABD US: Mild to moderate volume of ascites containing floating debris noted throughout all quadrants of the abdomen. Chest XR: Cardiomegaly with mild pulmonary vascular congestion. There are small bilateral pleural effusions with bibasilar consolidation. This likely represents atelectasis. Clinical correlation will be required. Paracentesis 05/25/18: Malignant High grade serous carcinoma. The cellblock preparation shows single and clusters of tumor cells forming occasional papillary structures. The tumor cells demostrate an increased nuclear/ cytoplasmic ratio, hyperchromatic nuclei, variable nuclear pleomorphism and prominent macronucleoli. The cytoplasm varies from eosinophilic to clear and some degree of necrosis is also present. Mitotic figures are seen.Special studies: Immunocytochemical assays were performed and the tumor cells are positive for ER, WT-1,p53, CK7, CK8/18, CA125, and CEA, and negative for mammaglobin, BREONNA-3, TTF-1, and CK20, supportingthe above diagnosis. The cellular proliferation index (MIB-1) is high (80%). Comment: Received and reviewed are 17 slides from [facility]. The patient�s clinical historyof pelvic mass and elevated levels of CA 125 are noted. This cellular specimen demonstrates numerousclusters of atypical cells with pleomorphic, hyperchromatic nuclei with prominent nucleoli. Overall, the tumorcytomorphology and immunophenotype are compatible with high grade serous carcinoma. � CT abd/pelvis 06/17/18: Performed in [facility] (formerly [facility]3] 05/12/18, increase in size of probable malignant ascitesProbably metastatic deposits along mesenteric surfaces are similar to the previous study (most prominently in the left upper quadrant). Newly developed bilateral pleural effusions. Possible developing hepatic cirrhosis.Redemonstration of calcified distal splenic artery aneurysm. � CT abd/pelvis 05/12/18: Heterogenous dense material is seen in the posterior pelvis, with suggestion of active contrast extravasation from the right gonadal vein. Additionally, low-density ascitic fluid is present, predominantly in the upper abdomen, possibly related to developing hepatic cirrhosis. Mild intrahepatic and extrahepatic biliary dilation without visible obstruction abnormality.Approximately 1 cm calcified distal splenic artery aneurysm, stable from 11/06/15 Allergies Allergy/AdvReac Type Severity Reaction Status Date / Time ELISE Inhibitors AdvReac Cough Unverified 09/05/18 17:11 Home Medications Home Medications Medication Instructions Recorded Confirmed Type carvedilol 6.25 mg PO BID 09/05/18 09/05/18 History Patient History Medical History LBBB (left bundle branch block) (Chronic) CAD (coronary artery disease) (Chronic) HTN (hypertension) (Chronic) HLD (hyperlipidemia) (Chronic) Ovarian cancer (Chronic) Atrial fibrillation (Chronic) Supraventricular tachycardia (Resolved) Endocarditis (Resolved) Stroke (Chronic) Rhabdomyolysis (Resolved) Pulmonary nodules (Chronic) "noted on CT chest 08/27/13" Pancreatic mass (Chronic) "noted on CT of chest 08/27/13" Surgical History History of cardiac cath (Resolved) 07/15/2016 - patent LAD stent, 40% mild LD distal to LAD stent, 30% mid RCA, distal RPDA patent History of appendectomy (Resolved) Status post exploratory laparotomy (Chronic) Status post mitral valve repair (Chronic) "Dr. Mcdaniel [place] 2003" Status post ablation of accessory bypass tract (Chronic) "Dr. Worley [place] 2004" Family History Other Breast cancer CAD (coronary artery disease) Lung cancer Social History Current Living Situation: Spouse Other Information That Helps Us Care for You: No Feels Safe at Home: Yes Smoking Status: Never smoker Second Hand Exposure: No Hx Alcohol Use: No Hx Substance Use: No Beliefs That Will Affect Care: None Preferred Language: Finnish Review of Systems Constitutional: + fatigue and + weakness; no fever and no chills Respiratory: + dyspnea; no cough, no hemoptysis, no snoring and no wheezing Cardiovascular: + dyspnea and + dyspnea on exertion; no chest pain, no chest pain at rest, no radiating jaw, neck or arm pain and no palpitations Gastrointestinal: + bloating; no abdominal pain, no belching, no early satiety, no heartburn, no nausea, no vomiting, no coffee ground emesis, no hematemesis, no pain with swallowing, no dysphagia, no cramping, no excessive flatulence, no change in bowel habits, no change in stools, no constipation, no diarrhea/loose stools, no fecal incontinence, no constant urge to pass stools, no blood in stools and no melena Physical Exam 2 Vital Signs (Past 24 Hours): Last Vital Signs Temp 36.9 C 09/06/18 07:48 Pulse 75 09/06/18 08:15 Resp 28 H 09/06/18 07:48 BP 105/51 L 09/06/18 07:48 Pulse Ox 100 09/06/18 07:48 Constitutional: + ill appearing, cooperative and comfortable; no acute distress Respiratory: normal respiratory effort, lungs clear to auscultation Cardiovascular: RRR, no murmur, no edema Gastrointestinal (Abdomen): Inspection/Auscultation: normal bowel sounds Percussion/Palpation: + ascites; no guarding and abdomen not rigid scattered echymosis on abd Skin: no rashes, warm and dry Results & Data Laboratory Results 09/06/18 09/06/18 09/06/18 Range/Units 08:55 03:57 03:57 WBC 8.93 (4.8-10.8) K/uL RBC 2.91 L (4.2-5.4) M/uL Hgb 8.7 L (12.0-16.0) g/dL POC Hgb (12.0-16.0) g/dl Hct 25.9 L (37-47) % POC Hct (37-47) % MCV 89.0 D (80-100) fL MCH 29.9 (25-34) pg MCHC 33.6 (32-36) g/dL RDW Std Deviation 63.3 H (36.4-46.3) fL RDW Coeff of Gabriela 19.6 H (11.5-14.5) % Plt Count 179 (130-400) K/uL MPV 9.9 (7.4-10.4) fL Immature Gran % (Auto) % Neut % (Auto) % Lymph % (Auto) % Garvin % (Auto) % Eos % (Auto) % Baso % (Auto) % Reticulocyte % (Auto) (0.5-2.0) % Immature Gran # (Auto) (0.00-0.02) K/uL Neut # (Auto) (1.4-6.5) K/uL Lymph # (Auto) (1.2-3.4) K/uL Garvin # (Auto) (0.11-0.59) K/uL Eos # (Auto) (0-0.5) K/uL Baso # (Auto) (0-0.2) K/uL Reticulocyte # (0.02-0.10) 10^6/uL RBC Morphology PT (9.0-12.0) Seconds INR (0.9-1.1) APTT (21.0-31.0) Seconds PTT Ratio VBG pH (7.36-7.41) VBG pCO2 (38-50) mmHg VBG pO2 mmHg VBG HCO3 mmol/L VBG O2 Saturation % VBG Base Excess mEq/L Barometric Pressure mm/Hg POC Sodium (135-144) mEq/L Sodium 133 L (136-145) mmol/L POC Potassium (3.3-5.0) mEq/L Potassium 4.0 (3.5-5.1) mmol/L POC Chloride (101-112) mEq/L Chloride 102 (98-107) mmol/L Carbon Dioxide 25 (21-32) mmol/L POC Total CO2 (24-31) mEq/l Anion Gap 6.0 (3-11) POC Anion Gap (16-25) mmol/L POC BUN (7-18) mg/dl BUN 23 H (7-18) mg/dl Creatinine 0.85 (0.6-1.2) mg/dl POC Creatinine (0.6-1.3) mg/dl Est Cr Clr Drug Dosing 51.5 ml/min Est GFR ( Amer) 77.7 Est GFR (Non-Af Amer) 67.0 BUN/Creatinine Ratio 26.5 H (10-20) Glucose 151 H (70-99) mg/dl POC Glucose (other) (70-99) mg/dl Calcium 7.9 L (8.5-10.1) mg/dl POC Ioniz Calcium Amparo (1.12-1.32) mmol/l Iron (35-150) mcg/dl TIBC (250-450) mcg/dl Ferritin (8-388) ng/ml Total Bilirubin (0.2-1) mg/dl AST (15-37) U/L ALT (12-78) U/L Alkaline Phosphatase (45-117) U/L Troponin I (0-0.045) ng/ml Total Protein (6.4-8.2) gm/dl Albumin (3.4-5.0) gm/dl Globulin (2.5-4.0) gm/dl Albumin/Globulin Ratio (0.9-2) Lipase (73-393) U/L Vitamin B12 (211-911) pg/ml Folate (>5.38) ng/ml Urine Color [place] Urine Appearance Clear (Clear) Urine pH 5.5 (4.5-7.5) Ur Specific [place] 1.021 (1.000-1.030) Urine Protein Trace H (Negative) Urine Glucose (UA) Negative (Negative) Urine Ketones Negative (Negative) Urine Blood Negative (Negative) Urine Nitrite Negative (Negative) Urine Bilirubin Negative (Negative) Urine Urobilinogen Negative (Negative) Ur Leukocyte Esterase Negative (Negative) Urine WBC (Auto) 1-5 (0-5) /hpf Urine RBC (Auto) 0-4 (0-4) /hpf U Hyaline Cast (Auto) 1-5 (0-5) /lpf U Epithel Cells (Auto) 5-10 H (0-5) /lpf Urine Bacteria (Auto) Negative (Negative) Influenza Type A (PCR) (Neg) Influenza Type B (PCR) (Neg) Blood Type Blood Type Recheck Antibody Screen Crossmatch 09/05/18 09/05/1819 Range/Units 19:30 18:12 18:12 WBC (4.8-10.8) K/uL RBC (4.2-5.4) M/uL Hgb (12.0-16.0) g/dL POC Hgb (12.0-16.0) g/dl Hct (37-47) % POC Hct (37-47) % MCV (80-100) fL MCH (25-34) pg MCHC (32-36) g/dL RDW Std Deviation (36.4-46.3) fL RDW Coeff of Gabriela (11.5-14.5) % Plt Count (130-400) K/uL MPV (7.4-10.4) fL Immature Gran % (Auto) % Neut % (Auto) % Lymph % (Auto) % Garvin % (Auto) % Eos % (Auto) % Baso % (Auto) % Reticulocyte % (Auto) (0.5-2.0) % Immature Gran # (Auto) (0.00-0.02) K/uL Neut # (Auto) (1.4-6.5) K/uL Lymph # (Auto) (1.2-3.4) K/uL Garvin # (Auto) (0.11-0.59) K/uL Eos # (Auto) (0-0.5) K/uL Baso # (Auto) (0-0.2) K/uL Reticulocyte # (0.02-0.10) 10^6/uL RBC Morphology PT (9.0-12.0) Seconds INR (0.9-1.1) APTT (21.0-31.0) Seconds PTT Ratio VBG pH (7.36-7.41) VBG pCO2 (38-50) mmHg VBG pO2 mmHg VBG HCO3 mmol/L VBG O2 Saturation % VBG Base Excess mEq/L Barometric Pressure mm/Hg POC Sodium (135-144) mEq/L Sodium (136-145) mmol/L POC Potassium (3.3-5.0) mEq/L Potassium (3.5-5.1) mmol/L POC Chloride (101-112) mEq/L Chloride (98-107) mmol/L Carbon Dioxide (21-32) mmol/L POC Total CO2 (24-31) mEq/l Anion Gap (3-11) POC Anion Gap (16-25) mmol/L POC BUN (7-18) mg/dl BUN (7-18) mg/dl Creatinine (0.6-1.2) mg/dl POC Creatinine (0.6-1.3) mg/dl Est Cr Clr Drug Dosing ml/min Est GFR ( Amer) Est GFR (Non-Af Amer) BUN/Creatinine Ratio (10-20) Glucose (70-99) mg/dl POC Glucose (other) (70-99) mg/dl Calcium (8.5-10.1) mg/dl POC Ioniz Calcium Amparo (1.12-1.32) mmol/l Iron 10 L (35-150) mcg/dl TIBC 173 L (250-450) mcg/dl Ferritin 314.3 (8-388) ng/ml Total Bilirubin (0.2-1) mg/dl AST (15-37) U/L ALT (12-78) U/L Alkaline Phosphatase (45-117) U/L Troponin I (0-0.045) ng/ml Total Protein (6.4-8.2) gm/dl Albumin (3.4-5.0) gm/dl Globulin (2.5-4.0) gm/dl Albumin/Globulin Ratio (0.9-2) Lipase 69 L (73-393) U/L Vitamin B12 > 2000 H (211-911) pg/ml Folate 18.95 (>5.38) ng/ml Urine Color Urine Appearance (Clear) Urine pH (4.5-7.5) Ur Specific [place] (1.000-1.030) Urine Protein (Negative) Urine Glucose (UA) (Negative) Urine Ketones (Negative) Urine Blood (Negative) Urine Nitrite (Negative) Urine Bilirubin (Negative) Urine Urobilinogen (Negative) Ur Leukocyte Esterase (Negative) Urine WBC (Auto) (0-5) /hpf Urine RBC (Auto) (0-4) /hpf U Hyaline Cast (Auto) (0-5) /lpf U Epithel Cells (Auto) (0-5) /lpf Urine Bacteria (Auto) (Negative) Influenza Type A (PCR) (Neg) Influenza Type B (PCR) (Neg) Blood Type Blood Type Recheck Antibody Screen Crossmatch 09/05/18 09/05/18 09/05/18 Range/Units 18:12 18:12 16:52 WBC (4.8-10.8) K/uL RBC (4.2-5.4) M/uL Hgb 6.4 L* (12.0-16.0) g/dL POC Hgb (12.0-16.0) g/dl Hct 19.2 L* (37-47) % POC Hct (37-47) % MCV (80-100) fL MCH (25-34) pg MCHC (32-36) g/dL RDW Std Deviation (36.4-46.3) fL RDW Coeff of Gabriela (11.5-14.5) % Plt Count (130-400) K/uL MPV (7.4-10.4) fL Immature Gran % (Auto) % Neut % (Auto) % Lymph % (Auto) % Garvin % (Auto) % Eos % (Auto) % Baso % (Auto) % Reticulocyte % (Auto) 3.2 H (0.5-2.0) % Immature Gran # (Auto) (0.00-0.02) K/uL Neut # (Auto) (1.4-6.5) K/uL Lymph # (Auto) (1.2-3.4) K/uL Garvin # (Auto) (0.11-0.59) K/uL Eos # (Auto) (0-0.5) K/uL Baso # (Auto) (0-0.2) K/uL Reticulocyte # 0.06 (0.02-0.10) 10^6/uL RBC Morphology PT (9.0-12.0) Seconds INR (0.9-1.1) APTT (21.0-31.0) Seconds PTT Ratio VBG pH (7.36-7.41) VBG pCO2 (38-50) mmHg VBG pO2 mmHg VBG HCO3 mmol/L VBG O2 Saturation % VBG Base Excess mEq/L Barometric Pressure mm/Hg POC Sodium (135-144) mEq/L Sodium (136-145) mmol/L POC Potassium (3.3-5.0) mEq/L Potassium (3.5-5.1) mmol/L POC Chloride (101-112) mEq/L Chloride (98-107) mmol/L Carbon Dioxide (21-32) mmol/L POC Total CO2 (24-31) mEq/l Anion Gap (3-11) POC Anion Gap (16-25) mmol/L POC BUN (7-18) mg/dl BUN (7-18) mg/dl Creatinine (0.6-1.2) mg/dl POC Creatinine (0.6-1.3) mg/dl Est Cr Clr Drug Dosing ml/min Est GFR ( Amer) Est GFR (Non-Af Amer) BUN/Creatinine Ratio (10-20) Glucose (70-99) mg/dl POC Glucose (other) (70-99) mg/dl Calcium (8.5-10.1) mg/dl POC Ioniz Calcium Amparo (1.12-1.32) mmol/l Iron (35-150) mcg/dl TIBC (250-450) mcg/dl Ferritin (8-388) ng/ml Total Bilirubin (0.2-1) mg/dl AST (15-37) U/L ALT (12-78) U/L Alkaline Phosphatase (45-117) U/L Troponin I (0-0.045) ng/ml Total Protein (6.4-8.2) gm/dl Albumin (3.4-5.0) gm/dl Globulin (2.5-4.0) gm/dl Albumin/Globulin Ratio (0.9-2) Lipase (73-393) U/L Vitamin B12 (211-911) pg/ml Folate (>5.38) ng/ml Urine Color Urine Appearance (Clear) Urine pH (4.5-7.5) Ur Specific [place] (1.000-1.030) Urine Protein (Negative) Urine Glucose (UA) (Negative) Urine Ketones (Negative) Urine Blood (Negative) Urine Nitrite (Negative) Urine Bilirubin (Negative) Urine Urobilinogen (Negative) Ur Leukocyte Esterase (Negative) Urine WBC (Auto) (0-5) /hpf Urine RBC (Auto) (0-4) /hpf U Hyaline Cast (Auto) (0-5) /lpf U Epithel Cells (Auto) (0-5) /lpf Urine Bacteria (Auto) (Negative) Influenza Type A (PCR) (Neg) Influenza Type B (PCR) (Neg) Blood Type A Negative Blood Type Recheck A Negative Antibody Screen NEGATIVE Crossmatch See Detail 09/05/18 09/05/18 09/05/18 Range/Units 16:20 16:07 15:59 WBC (4.8-10.8) K/uL RBC (4.2-5.4) M/uL Hgb (12.0-16.0) g/dL POC Hgb 6.5 L* (12.0-16.0) g/dl Hct (37-47) % POC Hct 19 L* (37-47) % MCV (80-100) fL MCH (25-34) pg MCHC (32-36) g/dL RDW Std Deviation (36.4-46.3) fL RDW Coeff of Gabriela (11.5-14.5) % Plt Count (130-400) K/uL MPV (7.4-10.4) fL Immature Gran % (Auto) % Neut % (Auto) % Lymph % (Auto) % Garvin % (Auto) % Eos % (Auto) % Baso % (Auto) % Reticulocyte % (Auto) (0.5-2.0) % Immature Gran # (Auto) (0.00-0.02) K/uL Neut # (Auto) (1.4-6.5) K/uL Lymph # (Auto) (1.2-3.4) K/uL Garvin # (Auto) (0.11-0.59) K/uL Eos # (Auto) (0-0.5) K/uL Baso # (Auto) (0-0.2) K/uL Reticulocyte # (0.02-0.10) 10^6/uL RBC Morphology PT (9.0-12.0) Seconds INR (0.9-1.1) APTT (21.0-31.0) Seconds PTT Ratio VBG pH 7.49 H (7.36-7.41) VBG pCO2 27 L (38-50) mmHg VBG pO2 32 mmHg VBG HCO3 20 mmol/L VBG O2 Saturation 65.9 % VBG Base Excess -3.0 mEq/L Barometric Pressure 730.5 mm/Hg POC Sodium 131 L (135-144) mEq/L Sodium (136-145) mmol/L POC Potassium 4.2 (3.3-5.0) mEq/L Potassium (3.5-5.1) mmol/L POC Chloride 98 L (101-112) mEq/L Chloride (98-107) mmol/L Carbon Dioxide (21-32) mmol/L POC Total CO2 21 L (24-31) mEq/l Anion Gap (3-11) POC Anion Gap 18.0 (16-25) mmol/L POC BUN 19 H (7-18) mg/dl BUN (7-18) mg/dl Creatinine (0.6-1.2) mg/dl POC Creatinine 0.8 (0.6-1.3) mg/dl Est Cr Clr Drug Dosing ml/min Est GFR ( Amer) Est GFR (Non-Af Amer) BUN/Creatinine Ratio (10-20) Glucose (70-99) mg/dl POC Glucose (other) 109 H (70-99) mg/dl Calcium (8.5-10.1) mg/dl POC Ioniz Calcium Amparo 1.09 L (1.12-1.32) mmol/l Iron (35-150) mcg/dl TIBC (250-450) mcg/dl Ferritin (8-388) ng/ml Total Bilirubin (0.2-1) mg/dl AST (15-37) U/L ALT (12-78) U/L Alkaline Phosphatase (45-117) U/L Troponin I (0-0.045) ng/ml Total Protein (6.4-8.2) gm/dl Albumin (3.4-5.0) gm/dl Globulin (2.5-4.0) gm/dl Albumin/Globulin Ratio (0.9-2) Lipase (73-393) U/L Vitamin B12 (211-911) pg/ml Folate (>5.38) ng/ml Urine Color Urine Appearance (Clear) Urine pH (4.5-7.5) Ur Specific [place] (1.000-1.030) Urine Protein (Negative) Urine Glucose (UA) (Negative) Urine Ketones (Negative) Urine Blood (Negative) Urine Nitrite (Negative) Urine Bilirubin (Negative) Urine Urobilinogen (Negative) Ur Leukocyte Esterase (Negative) Urine WBC (Auto) (0-5) /hpf Urine RBC (Auto) (0-4) /hpf U Hyaline Cast (Auto) (0-5) /lpf U Epithel Cells (Auto) (0-5) /lpf Urine Bacteria (Auto) (Negative) Influenza Type A (PCR) Neg for Influ A (Neg) Influenza Type B (PCR) Neg for Influ B (Neg) Blood Type Blood Type Recheck Antibody Screen Crossmatch 09/05/18 09/05/18 09/05/18 Range/Units 15:59 15:59 15:59 WBC 9.06 (4.8-10.8) K/uL RBC 1.99 L (4.2-5.4) M/uL Hgb 6.3 L* (12.0-16.0) g/dL POC Hgb (12.0-16.0) g/dl Hct 19.0 L* (37-47) % POC Hct (37-47) % MCV 95.5 (80-100) fL MCH 31.7 (25-34) pg MCHC 33.2 (32-36) g/dL RDW Std Deviation 51.4 H (36.4-46.3) fL RDW Coeff of Gabriela 15.0 H (11.5-14.5) % Plt Count 184 (130-400) K/uL MPV 9.6 (7.4-10.4) fL Immature Gran % (Auto) 0.3 % Neut % (Auto) 69.6 % Lymph % (Auto) 13.8 % Garvin % (Auto) 15.9 % Eos % (Auto) 0.1 % Baso % (Auto) 0.3 % Reticulocyte % (Auto) (0.5-2.0) % Immature Gran # (Auto) 0.03 H (0.00-0.02) K/uL Neut # (Auto) 6.30 (1.4-6.5) K/uL Lymph # (Auto) 1.25 (1.2-3.4) K/uL Garvin # (Auto) 1.44 H (0.11-0.59) K/uL Eos # (Auto) 0.01 (0-0.5) K/uL Baso # (Auto) 0.03 (0-0.2) K/uL Reticulocyte # (0.02-0.10) 10^6/uL RBC Morphology Unremarkable PT 10.8 (9.0-12.0) Seconds INR 1.1 (0.9-1.1) APTT 40.0 H (21.0-31.0) Seconds PTT Ratio 1.5 VBG pH (7.36-7.41) VBG pCO2 (38-50) mmHg VBG pO2 mmHg VBG HCO3 mmol/L VBG O2 Saturation % VBG Base Excess mEq/L Barometric Pressure mm/Hg POC Sodium (135-144) mEq/L Sodium 134 L (136-145) mmol/L POC Potassium (3.3-5.0) mEq/L Potassium 3.7 (3.5-5.1) mmol/L POC Chloride (101-112) mEq/L Chloride 106 (98-107) mmol/L Carbon Dioxide 22 (21-32) mmol/L POC Total CO2 (24-31) mEq/l Anion Gap 6.0 (3-11) POC Anion Gap (16-25) mmol/L POC BUN (7-18) mg/dl BUN 19 H (7-18) mg/dl Creatinine 0.64 (0.6-1.2) mg/dl POC Creatinine (0.6-1.3) mg/dl Est Cr Clr Drug Dosing 68.9 ml/min Est GFR ( Amer) 101.2 Est GFR (Non-Af Amer) 87.3 BUN/Creatinine Ratio 29.8 H (10-20) Glucose 97 (70-99) mg/dl POC Glucose (other) (70-99) mg/dl Calcium 6.9 L (8.5-10.1) mg/dl POC Ioniz Calcium Amparo (1.12-1.32) mmol/l Iron (35-150) mcg/dl TIBC (250-450) mcg/dl Ferritin (8-388) ng/ml Total Bilirubin 0.3 (0.2-1) mg/dl AST 21 (15-37) U/L ALT 25 (12-78) U/L Alkaline Phosphatase 63 (45-117) U/L Troponin I 0.016 (0-0.045) ng/ml Total Protein 5.1 L (6.4-8.2) gm/dl Albumin 2.3 L (3.4-5.0) gm/dl Globulin 2.8 (2.5-4.0) gm/dl Albumin/Globulin Ratio 0.8 L (0.9-2) Lipase (73-393) U/L Vitamin B12 (211-911) pg/ml Folate (>5.38) ng/ml Urine Color Urine Appearance (Clear) Urine pH (4.5-7.5) Ur Specific [place] (1.000-1.030) Urine Protein (Negative) Urine Glucose (UA) (Negative) Urine Ketones (Negative) Urine Blood (Negative) Urine Nitrite (Negative) Urine Bilirubin (Negative) Urine Urobilinogen (Negative) Ur Leukocyte Esterase (Negative) Urine WBC (Auto) (0-5) /hpf Urine RBC (Auto) (0-4) /hpf U Hyaline Cast (Auto) (0-5) /lpf U Epithel Cells (Auto) (0-5) /lpf Urine Bacteria (Auto) (Negative) Influenza Type A (PCR) (Neg) Influenza Type B (PCR) (Neg) Blood Type Blood Type Recheck Antibody Screen Crossmatch
--- NOTE | 2018-09-06 11:24 | CT Scan Report ---
CT OF THE ABDOMEN AND PELVIS WITHOUT CONTRAST CLINICAL HISTORY: Abdominal pain. History of ovarian cancer. Evaluate for hemorrhage. COMPARISON STUDY: Abdominal ultrasound September 05, 2018. TECHNIQUE: Axial images of the abdomen and pelvis were obtained without IV contrast. Images were revi ewed in the axial, sagittal, and coronal planes. Automated exposure control was utilized for the marika dy. A dose lowering technique was utilized adhering to the principles of ALARA. FINDINGS: Imaged portions of the lower chest demonstrate small bilateral pleural effusions, right lar ronit than left. There is associated airspace opacity which favors atelectasis. No pneumatosis, free ai r or portal venous gas is present. There is decreased attenuation of the cardiac blood pool which sug gests anemia. Prosthetic mitral valve is noted. There is extensive coronary artery calcification. A l arge amount of fluid within the abdomen and pelvis is noted. This measures above water attenuation. S everal hematocrit levels are noted. There is a large hyperdense mass-like abnormality within the pelv is that measures approximately 14.4 x 11.5 cm. Transition between blood clot and masses difficult on this unenhanced exam, particularly with lack of prior CT for comparison. Small partially calcified pe ritoneal nodule suggest peritoneal carcinomatosis. Normal ovaries are not visualized on this examinat ion. There are no suspicious osseous lesions. There is no evidence for a bowel obstruction. IMPRESSION: 1. Large amount of fluid within the abdomen and pelvis which suggests extensive hemoperitoneum, likel y arising from the pelvis. 14.4 x 11.5 cm hyperdense mass-like abnormality within the pelvis may refl ect a large blood clot, tumor or hemorrhage arising from a tumor. Correlation with prior outside CT w ould be of benefit. These urgent findings were discussed with Dr. Matthews at time of dictation. 2. Findings suggestive of peritoneal carcinomatosis. 3. Small bilateral pleural effusions. Electronically signed by: Jose Baltazar M.D. 09/06/2018 11:22 AM
[2018-09-06] MEDS ORDERED: SODIUM CHLORIDE 0.9% 1000ML 1,000 ML IV SCH (11:30)
[2018-09-06 11:51] LABS: Hematocrit (blood only) 24.6 % (37-47); Hemoglobin 8.4 g/dL (12.0-16.0)
--- NOTE | 2018-09-06 11:55 | Hospitalist Progress Note ---
Date of Service September 06, 2018 Assessment & Plan (1) Symptomatic anemia: per admitting service notes: Pt reports has had dyspnea on exertion and orthopnea since starting chemo couple of months ago. Increased SOB past 4 days. Today lightheaded with walking. Denies syncope. In ER pt afebrile, P: 112, R: 35 down to 22, BP: 133/114 down to 123/62, 88% on RA up to 100% on 2L NC WBC: 9, H/H: 6.3/, MCV: 95, MCH:31, MCHC: 33, Plt: 184 -Baseline Hgb: 12. Outpatient Hgb: 12.7 on 08/29/18 -Has been on lovenox outpatient for a-fib -pending iron studies, folate, B12, retic count -fecal occult stool -transfuse 2 units irradiated PRBC with lasix 40mg IV in between units -repeat H&H 4 hours after PRBC transfusion -hold aspirin, lovenox -GI consult appreciate recommendations 09/06/18 Hg improved from 6.3 to 8.4 still having significant abdominal pain CT Abdomen: 1. Large amount of fluid within the abdomen and pelvis which suggests extensive hemoperitoneum, likely arising from the pelvis. 14.4 x 11.5 cm hyperdense mass- like abnormality within the pelvis may reflect a large blood clot, tumor or hemorrhage arising from a tumor. Correlation with prior outside CT would be of benefit. These urgent findings were discussed with Dr. Matthews at time of dictation. 2. Findings suggestive of peritoneal carcinomatosis. 3. Small bilateral pleural effusions. -- hemiperitoneum related to ovarian CA or peritoneal carcinomatosis bleeding? patient was started on Lovenox 09/02/18 -- Gastroenterology consulted recommended transfer to [facility] [place] for possible drainage of hemoperitoneum drainage by IR -- discussed with patient she is agreeable and comfortable with plan of care -- will get in touch with Dr. Balderas from [facility] [place] Onc as patient is scheduled for surgery 09/12/18 repeat H&H stat, NPO, IV fluids (2) Ovarian cancer: Dx ovarian CA in 05/2018. Following with Dr Conroy at [facility] in [place]. Had chemo x 3, last was 07/27/18. Last [place] 07/28/18. Scheduled for exploratory lap, PEREZ/SBO and debulking on 09/12/17 at [facility] [place] with Dr Balderas. -continue tylenol, percocet prn pain (3) Acute respiratory failure: Pt reports has had dyspnea on exertion and orthopnea since starting chemo. Past 4 days with increased SOB. Denies cough/fever In ER pt afebrile, P: 112, R: 35 down to 22, BP: 133/114 down to 123/62, 88% on RA up to 100% on 2L NC CXR:Cardiomegaly with mild pulmonary vascular congestion. There are small bilateral pleural effusions with bibasilar consolidation. This likely represents atelectasis. -Doing well on 2L oxygen NC with sats 100% -Pt has been on lovenox 60mg BID for a-fib for one week, PE less likely -has current ascites, anemia -supplemental oxygen -monitor (4) Ascites: Hx ascites with ovarian CA. Last paracentesis 06/2018. Reports increased abdominal distension since last paracentesis which has significantly increased over the past few days. Chronic lower abdominal pain, but denies any increased abdominal pain. 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 (8) Stroke: 2004 CVA post-op mitral valve repair -hold aspirin with anemia (9) HTN (hypertension): Stable -continue carvedilol -hold losartan and reassess fluid status/renal functions tomorrow (10) LBBB (left bundle branch block): Chronic DVT Prophylaxis -SCDs with current anemia transfer to [facility] Subjective ff up for shortness of breath, abdominal pain seen resting in bed, not in distress but reports pain on her abdomen- generalized reminiscent of pain when ascites is progressing denies chest pain, dyspnea, dizziness denies melena/hematochezia no other symptoms Physical Exam 2 Vital Signs (Past 24 Hours): Last Vital Signs Temp 36.8 C 09/06/18 11:50 Pulse 99 H 09/06/18 11:50 Resp 18 09/06/18 11:50 BP 101/47 L 09/06/18 11:50 Pulse Ox 100 09/06/18 11:50 Physical Exam: General- oriented x 3, not in distress, speaks in sentences with no effort or accessory muscle use Eyes- anicteric Neck- no JVD Lungs- clear BS BL no rales/wheezes Heart- normal rate, regular rhythm; no murmurs Abdomen- normal bowel sounds, moderately distended, soft, (+) mild tenderness on all quadrants Extremities- no pretibial edema, no calf tenderness Neuro- alert, oriented x 3; no gross focal neurologic deficits Skin- warm & dry Results & Data Laboratory Results Laboratory Results - last 24 hr 09/05/18 09/05/18 09/05/18 15:59 15:59 15:59 WBC 9.06 RBC 1.99 L Hgb 6.3 L* POC Hgb Hct 19.0 L* POC Hct MCV 95.5 MCH 31.7 MCHC 33.2 RDW Std Deviation 51.4 H RDW Coeff of Gabriela 15.0 H Plt Count 184 MPV 9.6 Immature Gran % (Auto) 0.3 Neut % (Auto) 69.6 Lymph % (Auto) 13.8 Esmeralda % (Auto) 15.9 Eos % (Auto) 0.1 Baso % (Auto) 0.3 Reticulocyte % (Auto) Immature Gran # (Auto) 0.03 H Neut # (Auto) 6.30 Lymph # (Auto) 1.25 Esmeralda # (Auto) 1.44 H Eos # (Auto) 0.01 Baso # (Auto) 0.03 Reticulocyte # RBC Morphology Unremarkable PT 10.8 INR 1.1 APTT 40.0 H PTT Ratio 1.5 VBG pH VBG pCO2 VBG pO2 VBG HCO3 VBG O2 Saturation VBG Base Excess Barometric Pressure POC Sodium Sodium 134 L POC Potassium Potassium 3.7 POC Chloride Chloride 106 Carbon Dioxide 22 POC Total CO2 Anion Gap 6.0 POC Anion Gap POC BUN BUN 19 H Creatinine 0.64 POC Creatinine Est Cr Clr Drug Dosing 68.9 Est GFR ( Amer) 101.2 Est GFR (Non-Af Amer) 87.3 BUN/Creatinine Ratio 29.8 H Glucose 97 POC Glucose (other) Calcium 6.9 L POC Ioniz Calcium Amparo Iron TIBC Ferritin Total Bilirubin 0.3 AST 21 ALT 25 Alkaline Phosphatase 63 Troponin I 0.016 Total Protein 5.1 L Albumin 2.3 L Globulin 2.8 Albumin/Globulin Ratio 0.8 L Lipase Vitamin B12 Folate Urine Color Urine Appearance Urine pH Ur Specific [place] Urine Protein Urine Glucose (UA) Urine Ketones Urine Blood Urine Nitrite Urine Bilirubin Urine Urobilinogen Ur Leukocyte Esterase Urine WBC (Auto) Urine RBC (Auto) U Hyaline Cast (Auto) U Epithel Cells (Auto) Urine Bacteria (Auto) Influenza Type A (PCR) Influenza Type B (PCR) Blood Type Blood Type Recheck Antibody Screen Crossmatch 09/05/18 09/05/18 09/05/18 15:59 16:07 16:20 WBC RBC Hgb POC Hgb 6.5 L* Hct POC Hct 19 L* MCV MCH MCHC RDW Std Deviation RDW Coeff of Gabriela Plt Count MPV Immature Gran % (Auto) Neut % (Auto) Lymph % (Auto) Esmeralda % (Auto) Eos % (Auto) Baso % (Auto) Reticulocyte % (Auto) Immature Gran # (Auto) Neut # (Auto) Lymph # (Auto) Esmeralda # (Auto) Eos # (Auto) Baso # (Auto) Reticulocyte # RBC Morphology PT INR APTT PTT Ratio VBG pH 7.49 H VBG pCO2 27 L VBG pO2 32 VBG HCO3 20 VBG O2 Saturation 65.9 VBG Base Excess -3.0 Barometric Pressure 730.5 POC Sodium 131 L Sodium POC Potassium 4.2 Potassium POC Chloride 98 L Chloride Carbon Dioxide POC Total CO2 21 L Anion Gap POC Anion Gap 18.0 POC BUN 19 H BUN Creatinine POC Creatinine 0.8 Est Cr Clr Drug Dosing Est GFR ( Amer) Est GFR (Non-Af Amer) BUN/Creatinine Ratio Glucose POC Glucose (other) 109 H Calcium POC Ioniz Calcium Amparo 1.09 L Iron TIBC Ferritin Total Bilirubin AST ALT Alkaline Phosphatase Troponin I Total Protein Albumin Globulin Albumin/Globulin Ratio Lipase Vitamin B12 Folate Urine Color Urine Appearance Urine pH Ur Specific [place] Urine Protein Urine Glucose (UA) Urine Ketones Urine Blood Urine Nitrite Urine Bilirubin Urine Urobilinogen Ur Leukocyte Esterase Urine WBC (Auto) Urine RBC (Auto) U Hyaline Cast (Auto) U Epithel Cells (Auto) Urine Bacteria (Auto) Influenza Type A (PCR) Neg for Influ A Influenza Type B (PCR) Neg for Influ B Blood Type Blood Type Recheck Antibody Screen Crossmatch 09/05/18 09/05/18 09/05/18 16:52 18:12 18:12 WBC RBC Hgb 6.4 L* POC Hgb Hct 19.2 L* POC Hct MCV MCH MCHC RDW Std Deviation RDW Coeff of Gabriela Plt Count MPV Immature Gran % (Auto) Neut % (Auto) Lymph % (Auto) Esmeralda % (Auto) Eos % (Auto) Baso % (Auto) Reticulocyte % (Auto) 3.2 H Immature Gran # (Auto) Neut # (Auto) Lymph # (Auto) Esmeralda # (Auto) Eos # (Auto) Baso # (Auto) Reticulocyte # 0.06 RBC Morphology PT INR APTT PTT Ratio VBG pH VBG pCO2 VBG pO2 VBG HCO3 VBG O2 Saturation VBG Base Excess Barometric Pressure POC Sodium Sodium POC Potassium Potassium POC Chloride Chloride Carbon Dioxide POC Total CO2 Anion Gap POC Anion Gap POC BUN BUN Creatinine POC Creatinine Est Cr Clr Drug Dosing Est GFR ( Amer) Est GFR (Non-Af Amer) BUN/Creatinine Ratio Glucose POC Glucose (other) Calcium POC Ioniz Calcium Amparo Iron TIBC Ferritin Total Bilirubin AST ALT Alkaline Phosphatase Troponin I Total Protein Albumin Globulin Albumin/Globulin Ratio Lipase Vitamin B12 Folate Urine Color Urine Appearance Urine pH Ur Specific [place] Urine Protein Urine Glucose (UA) Urine Ketones Urine Blood Urine Nitrite Urine Bilirubin Urine Urobilinogen Ur Leukocyte Esterase Urine WBC (Auto) Urine RBC (Auto) U Hyaline Cast (Auto) U Epithel Cells (Auto) Urine Bacteria (Auto) Influenza Type A (PCR) Influenza Type B (PCR) Blood Type A Negative Blood Type Recheck A Negative Antibody Screen NEGATIVE Crossmatch See Detail 09/05/18 09/05/18 09/05/18 18:12 18:12 19:30 WBC RBC Hgb POC Hgb Hct POC Hct MCV MCH MCHC RDW Std Deviation RDW Coeff of Gabriela Plt Count MPV Immature Gran % (Auto) Neut % (Auto) Lymph % (Auto) Esmeralda % (Auto) Eos % (Auto) Baso % (Auto) Reticulocyte % (Auto) Immature Gran # (Auto) Neut # (Auto) Lymph # (Auto) Esmeralda # (Auto) Eos # (Auto) Baso # (Auto) Reticulocyte # RBC Morphology PT INR APTT PTT Ratio VBG pH VBG pCO2 VBG pO2 VBG HCO3 VBG O2 Saturation VBG Base Excess Barometric Pressure POC Sodium Sodium POC Potassium Potassium POC Chloride Chloride Carbon Dioxide POC Total CO2 Anion Gap POC Anion Gap POC BUN BUN Creatinine POC Creatinine Est Cr Clr Drug Dosing Est GFR ( Amer) Est GFR (Non-Af Amer) BUN/Creatinine Ratio Glucose POC Glucose (other) Calcium POC Ioniz Calcium Amparo Iron 10 L TIBC 173 L Ferritin 314.3 Total Bilirubin AST ALT Alkaline Phosphatase Troponin I Total Protein Albumin Globulin Albumin/Globulin Ratio Lipase 69 L Vitamin B12 > 2000 H Folate 18.95 Urine Color Urine Appearance Urine pH Ur Specific [place] Urine Protein Urine Glucose (UA) Urine Ketones Urine Blood Urine Nitrite Urine Bilirubin Urine Urobilinogen Ur Leukocyte Esterase Urine WBC (Auto) Urine RBC (Auto) U Hyaline Cast (Auto) U Epithel Cells (Auto) Urine Bacteria (Auto) Influenza Type A (PCR) Influenza Type B (PCR) Blood Type Blood Type Recheck Antibody Screen Crossmatch 09/06/18 09/06/18 09/06/18 03:57 03:57 08:55 WBC 8.93 RBC 2.91 L Hgb 8.7 L POC Hgb Hct 25.9 L POC Hct MCV 89.0 D MCH 29.9 MCHC 33.6 RDW Std Deviation 63.3 H RDW Coeff of Gabriela 19.6 H Plt Count 179 MPV 9.9 Immature Gran % (Auto) Neut % (Auto) Lymph % (Auto) Esmeralda % (Auto) Eos % (Auto) Baso % (Auto) Reticulocyte % (Auto) Immature Gran # (Auto) Neut # (Auto) Lymph # (Auto) Esmeralda # (Auto) Eos # (Auto) Baso # (Auto) Reticulocyte # RBC Morphology PT INR APTT PTT Ratio VBG pH VBG pCO2 VBG pO2 VBG HCO3 VBG O2 Saturation VBG Base Excess Barometric Pressure POC Sodium Sodium 133 L POC Potassium Potassium 4.0 POC Chloride Chloride 102 Carbon Dioxide 25 POC Total CO2 Anion Gap 6.0 POC Anion Gap POC BUN BUN 23 H Creatinine 0.85 POC Creatinine Est Cr Clr Drug Dosing 51.5 Est GFR ( Amer) 77.7 Est GFR (Non-Af Amer) 67.0 BUN/Creatinine Ratio 26.5 H Glucose 151 H POC Glucose (other) Calcium 7.9 L POC Ioniz Calcium Amparo Iron TIBC Ferritin Total Bilirubin AST ALT Alkaline Phosphatase Troponin I Total Protein Albumin Globulin Albumin/Globulin Ratio Lipase Vitamin B12 Folate Urine Color [place] Urine Appearance Clear Urine pH 5.5 Ur Specific [place] 1.021 Urine Protein Trace H Urine Glucose (UA) Negative Urine Ketones Negative Urine Blood Negative Urine Nitrite Negative Urine Bilirubin Negative Urine Urobilinogen Negative Ur Leukocyte Esterase Negative Urine WBC (Auto) 1-5 Urine RBC (Auto) 0-4 U Hyaline Cast (Auto) 1-5 U Epithel Cells (Auto) 5-10 H Urine Bacteria (Auto) Negative Influenza Type A (PCR) Influenza Type B (PCR) Blood Type Blood Type Recheck Antibody Screen Crossmatch 09/06/18 11:42 WBC RBC Hgb 8.4 L POC Hgb Hct 24.6 L POC Hct MCV MCH MCHC RDW Std Deviation RDW Coeff of Gabriela Plt Count MPV Immature Gran % (Auto) Neut % (Auto) Lymph % (Auto) Esmeralda % (Auto) Eos % (Auto) Baso % (Auto) Reticulocyte % (Auto) Immature Gran # (Auto) Neut # (Auto) Lymph # (Auto) Esmeralda # (Auto) Eos # (Auto) Baso # (Auto) Reticulocyte # RBC Morphology PT INR APTT PTT Ratio VBG pH VBG pCO2 VBG pO2 VBG HCO3 VBG O2 Saturation VBG Base Excess Barometric Pressure POC Sodium Sodium POC Potassium Potassium POC Chloride Chloride Carbon Dioxide POC Total CO2 Anion Gap POC Anion Gap POC BUN BUN Creatinine POC Creatinine Est Cr Clr Drug Dosing Est GFR ( Amer) Est GFR (Non-Af Amer) BUN/Creatinine Ratio Glucose POC Glucose (other) Calcium POC Ioniz Calcium Amparo Iron TIBC Ferritin Total Bilirubin AST ALT Alkaline Phosphatase Troponin I Total Protein Albumin Globulin Albumin/Globulin Ratio Lipase Vitamin B12 Folate Urine Color Urine Appearance Urine pH Ur Specific [place] Urine Protein Urine Glucose (UA) Urine Ketones Urine Blood Urine Nitrite Urine Bilirubin Urine Urobilinogen Ur Leukocyte Esterase Urine WBC (Auto) Urine RBC (Auto) U Hyaline Cast (Auto) U Epithel Cells (Auto) Urine Bacteria (Auto) Influenza Type A (PCR) Influenza Type B (PCR) Blood Type Blood Type Recheck Antibody Screen Crossmatch
[2018-09-06 12:14] LABS: BUN Creatinine Ratio 30.2 (10-20); Calcium 8.1 mg/dl (8.5-10.1); Creatinine Clr Calc Pharmacy 56.1 ml/min; Est GFR (African American) 86.2; Est GFR (Non-African American) 74.4; Potassium 4.4 mmol/L (3.5-5.1)
--- NOTE | 2018-09-06 12:26 | Discharge Summary ---
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 Pt with hx abdominal pain and ascites, found to have ovarian/peritoneal CA in . Following with Dr Conroy at [facility] in [place]. Had Carbo AVC/Taxol 175 chemo x 3, last was 07/27/18. Last Nuelasta 07/28/18. Hx paracentesis, last one was in 06/2018 at [facility] Pt reports has had dyspnea on exertion and orthopnea since starting chemo. Past 4 days with increased SOB and today with SOB at rest. States this morning had left chest pain lasted a couple of seconds and resolved, occurred at rest. No further CP. Today felt lightheaded with walking. Denies syncope or falls. Pt states has had slow accumulation of abdominal distension since last paracentesis which has significantly increased over the past few days. Has had lower abdominal pain, but denies any increased abdominal pain. Had some nausea after taking tylenol on empty stomach this morning. Denies vomiting. Reports since chemo has had episodes of bright red blood noted on toilet paper with BMs that occurs a couple of times a week. States been happening daily over past 3 days. Reports BMs are soft. Denies diarrhea or constipation. Pt followed with Dr Balderas at [facility] and is scheduled for exploratory lap, PEREZ/SBO and debulking on 09/12/17 at [facility] On cardiology visit on 08/29/18 pt found to be in a-fib. Was started on lovenox secondary to upcoming surgical procedure. Pt reports has been taking 60mg Lovenox twice daily, denies missed doses. Denies fever/chills, diaphoresis, SINCLAIR, syncope, vision changes, neck pain, palpitations, cough, sore throat, choking, otalgia, rhinorrhea, paresthesias, extremity edema, rashes, urinary symptoms, hematuria, vaginal bleeding, epistaxis. Baseline Hgb: 12. Labs on 08/29/18 with Hgb: 12.7 05/19/18 EGD: esophagus unremarkable, minor inflammation of the antrum 05/19/18 Colonoscopy: direct visualization to approx 30 cm where there is marked angulation and evidence for diverticular disease. Scopes By Dr Chong - [facility] 09/01/[address] CHEST & CT ABD/PELVIS: 1. Moderate volume simple ascites with moderate simple pleural effusions. A few prominent central mesenteric lymph nodes are present. Diffusely heterogenouos and bulky uterus, which is concerning for neoplastic involvement. Interval decrease in burden of peritoneal disease compared to the study form 06/2018. No distinct peritoneal implant or evidence of liver scalloping. 2. Pulmonary nodules 3. Stable midbody pancreatic cystic lesion. 08/30/18 Echo: EF: 55-59%, s/p mitral valve repair. Moderate focal calcification of the anterior mitral valve leaflet. Mild mitral stenosis is present. Significant mitral regurgitation is absent. The left atrium is severely enlarged. Moderate tricuspid regurgitation is present. Admission Exam Per Admitting Provider Vital Signs (Past 24 Hours): Last Vital Signs Temp 36.6 C 09/05/18 15:14 Pulse 105 H 09/05/18 17:00 Resp 23 09/05/18 17:00 BP 136/71 09/05/18 17:00 Pulse Ox 100 09/05/18 17:00 Physical Exam: General: no acute distress, chronically ill appearing Head: normocephalic, atraumatic Eyes: PERRL, EOM's intact, conjunctiva non-injected, anicteric ENT: normal inspection external ears, nose, mucous membranes moist Neck: supple, trachea midline Lungs: R: 24, no accessory muscle use clear, 100% on 2L NC, diminished bases CV: irregularly irregular, no pretibial edema Abd: normal BS, soft, +distended, no tenderness to palpation, +ecchymosis to abdomen Ext: no cyanosis, no calf tenderness, no erythema Neuro: A&O x 3, no focal deficits noted, normal affect Skin: warm, dry Principal Diagnosis HEMIPERITONEUM, IN THE SETTING OF OVARIAN CANCER AND PERITONEAL CARCINOMATOSIS; SEVERE ANEMIA Discharge Exam Vital Signs (Past 24 Hours): Last Vital Signs Temp 36.8 C 09/06/18 11:50 Pulse 99 H 09/06/18 11:50 Resp 18 09/06/18 11:50 BP 101/47 L 09/06/18 11:50 Pulse Ox 100 09/06/18 11:50 Physical Exam: General- oriented x 3, not in distress, speaks in sentences with no effort or accessory muscle use Eyes- anicteric Neck- no JVD Lungs- clear BS BL no rales/wheezes Heart- normal rate, regular rhythm; no murmurs Abdomen- normal bowel sounds, moderately distended, soft, (+) mild tenderness on all quadrants Extremities- no pretibial edema, no calf tenderness Neuro- alert, oriented x 3; no gross focal neurologic deficits Skin- warm & dry Discharge Data Allergies Allergy/AdvReac Type Severity Reaction Status Date / Time ELISE Inhibitors AdvReac Cough Unverified 09/05/18 17:11 Consultations 09/05/18 16:47 ED Decision to Admit Stat 09/05/18 19:15 Consult Cardiology Routine Consult Case Management - Discharge Planning Routine Consult Gastroenterology Routine 09/06/18 11:52 Burn CD for patient Routine Ordered Studies 09/05/18 19:15 US abdomen limited Urgent US abdomen limited HISTORY: 73 years-old Female ascites recurrent ascites with abdominal distention COMPARISON: None available TECHNIQUE: Multiple real-time sonographic images of the abdomen were obtained assessing grayscale appearance FINDINGS/IMPRESSION: Mild to moderate volume of ascites containing floating debris noted throughout all quadrants of the abdomen. 09/06/18 10:09 CT abd pelvis wo con Stat CT OF THE ABDOMEN AND PELVIS WITHOUT CONTRAST CLINICAL HISTORY: Abdominal pain. History of ovarian cancer. Evaluate for hemorrhage. COMPARISON STUDY: Abdominal ultrasound September 05, 2018. TECHNIQUE: Axial images of the abdomen and pelvis were obtained without IV contrast. Images were reviewed in the axial, sagittal, and coronal planes. Automated exposure control was utilized for the study. A dose lowering technique was utilized adhering to the principles of ALARA. FINDINGS: Imaged portions of the lower chest demonstrate small bilateral pleural effusions, right larger than left. There is associated airspace opacity which favors atelectasis. No pneumatosis, free air or portal venous gas is present. There is decreased attenuation of the cardiac blood pool which suggests anemia. Prosthetic mitral valve is noted. There is extensive coronary artery calcification. A large amount of fluid within the abdomen and pelvis is noted. This measures above water attenuation. Several hematocrit levels are noted. There is a large hyperdense mass-like abnormality within the pelvis that measures approximately 14.4 x 11.5 cm. Transition between blood clot and masses difficult on this unenhanced exam, particularly with lack of prior CT for comparison. Small partially calcified peritoneal nodule suggest peritoneal carcinomatosis. Normal ovaries are not visualized on this examination. There are no suspicious osseous lesions. There is no evidence for a bowel obstruction. IMPRESSION: 1. Large amount of fluid within the abdomen and pelvis which suggests extensive hemoperitoneum, likely arising from the pelvis. 14.4 x 11.5 cm hyperdense mass- like abnormality within the pelvis may reflect a large blood clot, tumor or hemorrhage arising from a tumor. Correlation with prior outside CT would be of benefit. These urgent findings were discussed with Dr. Matthews at time of dictation. 2. Findings suggestive of peritoneal carcinomatosis. 3. Small bilateral pleural effusions. Hospital Course (1) Symptomatic anemia: per admitting service notes: Pt reports has had dyspnea on exertion and orthopnea since starting chemo couple of months ago. Increased SOB past 4 days. Today lightheaded with walking. Denies syncope. In ER pt afebrile, P: 112, R: 35 down to 22, BP: 133/114 down to 123/62, 88% on RA up to 100% on 2L NC WBC: 9, H/H: 6.3/, MCV: 95, MCH:31, MCHC: 33, Plt: 184 -Baseline Hgb: 12. Outpatient Hgb: 12.7 on 08/29/18 -Has been on lovenox outpatient for a-fib -pending iron studies, folate, B12, retic count -fecal occult stool -transfuse 2 units irradiated PRBC with lasix 40mg IV in between units -repeat H&H 4 hours after PRBC transfusion -hold aspirin, lovenox -GI consult appreciate recommendations 09/06/18 Hg improved from 6.3 to 8.4 still having significant abdominal pain CT Abdomen: 1. Large amount of fluid within the abdomen and pelvis which suggests extensive hemoperitoneum, likely arising from the pelvis. 14.4 x 11.5 cm hyperdense mass- like abnormality within the pelvis may reflect a large blood clot, tumor or hemorrhage arising from a tumor. Correlation with prior outside CT would be of benefit. These urgent findings were discussed with Dr. Matthews at time of dictation. 2. Findings suggestive of peritoneal carcinomatosis. 3. Small bilateral pleural effusions. -- hemiperitoneum related to ovarian CA or peritoneal carcinomatosis bleeding? patient was started on Lovenox 09/02/18 -- Gastroenterology consulted recommended transfer to [facility] for possible drainage of hemoperitoneum drainage by IR -- discussed with patient she is agreeable and comfortable with plan of care -- will get in touch with Dr. Balderas from [facility] Gyne Onc as patient is scheduled for surgery 09/12/18 repeat H&H stat, NPO, IV fluids (2) Ovarian cancer: Dx ovarian CA in 05/2018. Following with Dr Conroy at [facility] in [place]. Had chemo x 3, last was 07/27/18. Last Nuelasta 07/28/18. Scheduled for exploratory lap, PEREZ/SBO and debulking on 09/12/17 at [facility] with Dr Balderas. -continue tylenol, percocet prn pain (3) Acute respiratory failure: Pt reports has had dyspnea on exertion and orthopnea since starting chemo. Past 4 days with increased SOB. Denies cough/fever In ER pt afebrile, P: 112, R: 35 down to 22, BP: 133/114 down to 123/62, 88% on RA up to 100% on 2L NC CXR:Cardiomegaly with mild pulmonary vascular congestion. There are small bilateral pleural effusions with bibasilar consolidation. This likely represents atelectasis. -Doing well on 2L oxygen NC with sats 100% -Pt has been on lovenox 60mg BID for a-fib for one week, PE less likely -has current ascites, anemia -supplemental oxygen -monitor (4) Ascites: Hx ascites with ovarian CA. Last paracentesis 06/2018. Reports increased abdominal distension since last paracentesis which has significantly increased over the past few days. Chronic lower abdominal pain, but denies any increased abdominal pain. No vomiting/diarrhea -- management as per above (5) Atrial fibrillation: Hx a-fib on lovenox past week, as has upcoming surgical procedure P:100-112 Pt anemic -continue carvedilol -hold lovenox -monitor -cardiology consulted (6) CAD (coronary artery disease): CAD s/p angioplasty RPDA and JOHNSON to LAD in 2016 Troponin: 0.016 -hold aspirin, continue carvedilol (7) Status post mitral valve repair: h/o endocarditis in 2004 with mitral valve repair (8) Stroke: 2004 CVA post-op mitral valve repair -hold aspirin with anemia (9) HTN (hypertension): Stable -continue carvedilol -hold losartan and reassess fluid status/renal functions tomorrow (10) LBBB (left bundle branch block): Chronic DVT Prophylaxis -SCDs with current anemia transfer to [facility] Total Time Total Time Spent Total Time Spent (In Minutes): 90 MINUTES Discharge Plan Discharge Items Patient Disposition: Transfer Acute Care Hospital Reason For Visit: ANEMIA,ASCITES Discharge Diagnosis: HEMOPERITONEUM Discharge Goals: Diagnostic testing and Therapeutic intervention Activity: As commented below Activity Comment: COMPLETE BEDREST Lifting: Wait until after follow-up appointment Exercise/Sports: Wait until after follow-up appointment Driving/Machine Use Comment: NO DRIVING Non-emergency contact: Primary Care Provider Call non-emergency contact if: you have any medication questions, your symptoms worsen, your pain is not controlled, your pain is worsening, your pain is unusual for you, your pain is concerning for you and you have a fever Diet: See below Diet Comment: NPO Addtl Provider Instructions: HOLD ALL MEDICATIONS FOR NOW, PATIENT NPO. PLEASE REFER TO ACCOMPANYING HOSPITAL DISCHARGE SUMMARY FOR FURTHER DETAILS. Prescriptions: Continue carvedilol 12.5 mg Tablet 6.25 mg PO BID RF: 0 Discontinued ascorbic acid (vitamin C) 1,000 mg Tablet 1 g PO DAILY RF: 0 acetaminophen [Tylenol] 325 mg Tablet 325 mg PO Q6H PRN (Reason: Pain) RF: 0 ondansetron HCl 8 mg tablet 8 mg PO UD PRN (Reason: Nausea) RF: 0 melatonin 3 mg Tablet 3 mg PO HS RF: 0 prochlorperazine maleate 10 mg Tablet 10 mg PO Q6 PRN (Reason: Nausea) RF: 0 aspirin [Aspirin Low Dose] 81 mg Tablet,Delayed Release (Dr/Ec) 81 mg PO DAILY RF: 0 isosorbide mononitrate 60 mg Tablet Extended Release 24 Hr 60 mg PO QAM RF: 0 dexamethasone 4 mg Tablet 4 mg PO UD RF: 0 losartan 25 mg Tablet 25 mg PO DAILY RF: 0 nitroglycerin 0.4 mg Tablet, Sublingual 0.4 mg Sublingual UD PRN (Reason: Chest Pain) RF: 0 polyethylene glycol 3350 [Miralax] 17 gram/dose Powder 17 g PO DAILY RF: 0 enoxaparin 60 mg/0.6 mL syringe 60 mg subcut UD RF: 0 oxycodone-acetaminophen 5-325 mg Tablet 1 tab PO Q4H PRN (Reason: Pain) RF: 0 Stand-Alone Forms: [facility] Discharge Orders: Discharge Order (Routine); Ordered 09/06/18 Ordered By: Damien Matthews Admission Data Admit Date/Time: 09/05/18 18:08 Attending Provider: Damien Matthews Admit Provider: Ingris Linda Primary Care Provider: Guillermo Cox Other Providers: Ingris Linda ; Herber Ledbetter ; Frankie Sahu Service: Telemetry
--- NOTE | 2018-09-07 12:25 | Coding Query ---
ANEMIA To promote full compliance with coding requirements relating to patient care, physician participation is requested in all cases of student loan counselor uncertainty. Please assist us with the question(s) below: Coding Question(s): The record reflects the following clinical findings: If these findings are indicative of anemia, please specify the known or suspected type by placing an "X" within the parenthesis (x). If other, please document type. Examples are: (X ) Acute blood loss anemia ( ) Anemia in neoplastic disease ( ) Acute Postoperative blood loss anemia ( ) Acute postoperative anemia due to dilutional fluids ( ) Chronic blood loss anemia ( ) Anemia of chronic disease ( ) Aplastic anemia ( ) Anemia due to renal disease ( ) Iron deficient anemia ( ) Anemia, unspecified or other ( ) Other: (please specify) ( ) Unable to determine Thank you Charleen MAGAÑA
== END 2018-09-06 14:20 | disposition short-term general hospital (02) | DRG 393 ==
LOC: ED 15:00 → 2E 18:08